=== PATIENT | male | born 1980 | race Caucasian/White ===

== ENCOUNTER 2020-05-03 18:34 | Emergency (ER) | payer OTHER, SELFPAY ==
--- NOTE | 2020-05-03 18:38 | ED_ITS ---
HPI - Overdose General Chief Complaint: Overdose <Ailyn Sims NP - Last Filed: 05/03/20 23:11> Stated Complaint: HEROIN OD,NARCAN GIVEN X'S 2, STILL IN & OUT <Ailyn Sims NP - Last Filed: 05/03/20 23:11> Time Seen by Provider: 05/03/20 18:36 <Ailyn Sims NP - Last Filed: 05/03/20 23:11> Source: EMS <Ailyn Sims NP - Last Filed: 05/03/20 23:11> Mode of arrival: EMS <Ailyn Sims NP - Last Filed: 05/03/20 23:11> Limitations: altered mental status <Ailyn Sims NP - Last Filed: 05/03/20 23:11> History of Present Illness HPI Narrative: 40-year-old male presents via EMS for overdose. Patient gave himself Narcan and was given 2 additional doses by EMS. He presents with bradycardia, cyanotic limbs and face. patient minimally responsive at this time. <Ailyn Sims NP - Last Filed: 05/03/20 23:11> MD complaint: accidental overdose <Ailyn Sims NP - Last Filed: 05/03/20 23:11> Onset (ago): minute(s) ( Just prior to arrival) <Ailyn Sims NP - Last Filed: 04/11 10/28 23:11> How Overdose Was Discovered: called 911 <Ailyn Sims NP - Last Filed: 05/03/20 23:11> Context: Intentional Overdose: relationship problems <Ailyn Sims NP - Last Filed: 05/03/20 23:11> Context: Accidental Overdose: wanted to get high <Ailyn Sims NP - Last Filed: 05/03/20 23:11> Treatments Prior to Arrival: narcan <Ailyn Sims NP - Last Filed: 05/03/20 23:11> Related Data Home Medications: Previous Rx's Medication Instructions Recorded clonazepam 1 mg tablet 1 mg PO TID PRN 30 Days #90 tab 05/02/20 metoprolol tartrate 100 mg tablet 100 mg PO BID 90 Days #180 tab 05/02/20 omeprazole 20 mg capsule,delayed 20 mg PO DAILY 90 Days #90 cap 05/02/20 release <Ailyn Sims NP - Last Filed: 05/03/20 23:11> Allergies/Adverse Reactions: Allergies Allergy/AdvReac Type Severity Reaction Status Date / Time cats Allergy Unknown hives Uncoded 05/03/20 18:41 <Aiyln Sims NP - Last Filed: 05/03/20 23:11> Review of Systems Review of Systems: Constitutional: No Fever, No Chills, positive heroin and fentanyl overdose ENT/Mouth: No sore throat, No Rhinorrhea Eyes: No Eye Pain, No Swelling, No Redness Cardiovascular: positive bradycardia, No Chest Pain, No SOB Respiratory: No Cough, No Sputum Gastrointestinal: No Nausea, No Vomiting, No Diarrhea, No abdominal Pain Genitourinary: No Dysuria, No Hematuria Musculoskeletal: No joint pain, No Myalgias, No Joint Swelling Skin: No Skin Lesions, No rash Neuro: No Weakness, No Numbness, No Loss of Consciousness, No Dizziness, No Headache Psych: No Anxiety, No Depression, No SI/HI/AH/VH Heme/Lymph: No Bruising, No Bleeding,No Lymphadenopathy Endocrine: No Polyuria, No Polydipsia <Aiyln Sims NP - Last Filed: 05/03/20 23:11> [facility] Past Medical History Attestation statement: The following information was validated with the patient. <Ailyn Sims NP - Last Filed: 05/03/20 23:11> Source: other ( obtained from EMS, and patient once he was awake) <Ailyn Sims NP - Last Filed: 05/03/20 23:11> Social History Social History: Social History Alcohol intake: current Alcohol intake frequency: a few times a week Smoking Status: Current every day smoker Use of substances other than those prescribed or required for medical reasons: Yes Substance Use Type: Heroin Substance Use Frequency: Daily Last Used Substance: Just Prior to Admission Advance Directives: No Advance Directives Information Provided: Yes <Ailyn Sims NP - Last Filed: 05/03/20 23:11> Physical Exam Vital Signs: Vital Signs: Vital Signs Temp Pulse Resp BP Pulse Ox 05/03/20 21:48 98.9 F 73 17 125/79 94 05/03/20 20:00 98.9 F 72 16 124/80 05/03/20 19:58 73 18 130/79 95 05/03/20 18:57 65 148/98 H 95 05/03/20 18:43 97.5 F 75 16 149/94 H 98 Body Mass Index 40.4 <Ailyn Sims NP - Last Filed: 05/03/20 23:11> Vital Signs: Vital Signs Temp Pulse Resp BP Pulse Ox 05/03/20 21:48 98.9 F 73 17 125/79 94 05/03/20 20:00 98.9 F 72 16 124/80 05/03/20 19:58 73 18 130/79 95 05/03/20 18:57 65 148/98 H 95 05/03/20 18:43 97.5 F 75 16 149/94 H 98 Body Mass Index 40.4 <Samuel Hernandez MD - Last Filed: 05/12/20 06:32> Appearance: Alert. Oriented X3. No acute distress. Eyes: Pupils equal, round and reactive to light. ENT: Pharynx normal. Neck: Normal inspection. Neck supple. CVS: Normal heart rate and rhythm. Pulses normal. Respiratory: No respiratory distress. Breath sounds normal. Abdomen: Soft and nontender. Skin: Skin warm and dry. Normal skin color. Normal skin turgor. Extremities: No lower extremity edema. Neuro: No motor deficit. No sensory deficit. <Ailyn Sims NP - Last Filed: 05/03/20 23:11> Course Course Course Narrative: patient's initial presentation was bradycardic with cyanotic limbs and face, once patient was moved into the trauma room, he was more alert oriented, heart rate in the 70s, pink skin with brisk capillary refill to all extremities, able to move over from EMS stretcher to ED trauma stretcher without any difficulty. At that time a complete review of systems was completed, states that this was an accidental overdose and he feels that maybe heroin was mixed with fentanyl. He has been using heroin for the past 2 weeks, prior to this he has been sober for 11 years. EKG is normal sinus With first-degree AV block, and T-wave abnormality, troponins are negative, tox screen positive for opiates and benzos -he is pr escribed benzos. Plan of care is to monitor for 2 hours and then discharge home if he remains in stable condition. Patient remains in stable condition time is 9:38 p.m., respirations even, unlabored, speaking clearly without difficulty, managing secretions, cranial nerves 2-12 intact, no focal neural deficits. Patient given Narcan for home use, and information for detox. Patient verbalized understanding of and agrees to plan of care discharge home. Consult with Dr. Siegel, he will follow- up in the office. <Ailyn Sims NP - Last Filed: 05/03/20 23:11> I have reviewed the chart <Samuel Hernandez MD - Last Filed: 05/12/20 06:32> Reevaluation(s) Reevaluation #1: Dr Siegel <Ailyn Sims NP - Last Filed: 05/03/20 23:11> Time: 23:02 <Ailyn Sims NP - Last Filed: 05/03/20 23:11> MDM - Overdose Differential Diagnosis Differential diagnosis: Likely poisoning by opiate or related narcotic, drug overdose and accidental drug ingestion <Ailyn Sims NP - Last Filed: 05/03/20 23:11> Medical Records Attestation: I reviewed the patient's medical records. <Ailyn Sims NP - Last Filed: 05/03/20 23:11> Lab Data Result diagrams: : 05/03/20 20:32 05/03/20 22:17 <Ailyn Sims NP - Last Filed: 05/03/20 23:11> Labs: Lab Results 05/03/20 05/03/20 05/03/20 Range/Units 20:32 20:32 20:32 WBC 12.9 H (4.8-10.8) X10*3/uL RBC 5.17 (4.60-5.80) X10*6/uL Hgb 16.7 (14.0-18.0) g/dl Hct 49.8 (42-52) % MCV 96.3 (80-98) fL MCH 32.3 (27.0-33.0) pg MCHC 33.5 (31.0-36.0) g/dl RDW 12.2 (11.0-16.0) % Plt Count 255 (160-400) X10*3/uL MPV 9.2 L (9.4-12.4) fL Immature Gran % (Auto) 0.2 (0.0-0.4) % Neut % (Auto) 74.1 H (45-73) % Lymph % (Auto) 16.2 L (20-40) % [place] % (Auto) 8.0 (2-11) % Eos % (Auto) 1.2 (0-4) % Baso % (Auto) 0.3 (0-2) % Lymph # (Auto) 2.1 (1.2-4.9) X10*3/uL [place] # (Auto) 1.0 (0.1-1.2) X10*3/uL Eos # (Auto) 0.2 (0.0-0.4) X10*3/uL Baso # (Auto) 0.0 (0.0-0.2) X10*3/uL Abs Immat Gran (auto) 0.03 (0.00-0.03) X10*3/uL Absolute Neuts (auto) 9.6 H (2.0-8.3) X10*3/uL Absolute Nucleated RBC 0.000 (0.0-0.012) X10*3/uL Nucleated RBC % (auto) 0.0 (0.0-0.2) /100WBC Sodium Cancelled Potassium Cancelled Chloride Cancelled Carbon Dioxide Cancelled Anion Gap Cancelled BUN Cancelled Creatinine Cancelled Estim Creat Clear Calc Cancelled Estimated GFR Cancelled Random Glucose Cancelled Calcium Cancelled Troponin I High Sens < 3.5 (<3.5-35.0) ng/L Urine Opiates Screen (Not Detect) Ur Barbiturates Screen (Not Detect) Ur Phencyclidine Scrn (Not Detect) Ur Amphetamines Screen (Not Detect) U Benzodiazepines Scrn (Not Detect) Urine Cocaine Screen (Not Detect) U Marijuana (THC) Screen (Not Detect) 05/03/20 05/03/20 05/03/20 Range/Units 20:32 22:17 22:17 WBC (4.8-10.8) X10*3/uL RBC (4.60-5.80) X10*6/uL Hgb (14.0-18.0) g/dl Hct (42-52) % MCV (80-98) fL MCH (27.0-33.0) pg MCHC (31.0-36.0) g/dl RDW (11.0-16.0) % Plt Count (160-400) X10*3/uL MPV (9.4-12.4) fL Immature Gran % (Auto) (0.0-0.4) % Neut % (Auto) (45-73) % Lymph % (Auto) (20-40) % [place] % (Auto) (2-11) % Eos % (Auto) (0-4) % Baso % (Auto) (0-2) % Lymph # (Auto) (1.2-4.9) X10*3/uL [place] # (Auto) (0.1-1.2) X10*3/uL Eos # (Auto) (0.0-0.4) X10*3/uL Baso # (Auto) (0.0-0.2) X10*3/uL Abs Immat Gran (auto) (0.00-0.03) X10*3/uL Absolute Neuts (auto) (2.0-8.3) X10*3/uL Absolute Nucleated RBC (0.0-0.012) X10*3/uL Nucleated RBC % (auto) (0.0-0.2) /100WBC Sodium 139 Potassium 4.0 Chloride 105 Carbon Dioxide 23 Anion Gap 15 BUN 11 Creatinine 0.85 Estim Creat Clear Calc 162.6 Estimated GFR > 60 Random Glucose 113 Calcium 9.1 Troponin I High Sens < 3.5 (<3.5-35.0) ng/L Urine Opiates Screen POSITIVE H (Not Detect) Ur Barbiturates Screen Not Detected (Not Detect) Ur Phencyclidine Scrn Not Detected (Not Detect) Ur Amphetamines Screen Not Detected (Not Detect) U Benzodiazepines Scrn POSITIVE H (Not Detect) Urine Cocaine Screen Not Detected (Not Detect) U Marijuana (THC) Screen Not Detected (Not Detect) <Ailyn Sims NP - Last Filed: 05/03/20 23:11> Lab Results 05/03/20 05/03/20 05/03/20 Range/Units 20:32 20:32 20:32 WBC 12.9 H (4.8-10.8) X10*3/uL RBC 5.17 (4.60-5.80) X10*6/uL Hgb 16.7 (14.0-18.0) g/dl Hct 49.8 (42-52) % MCV 96.3 (80-98) fL MCH 32.3 (27.0-33.0) pg MCHC 33.5 (31.0-36.0) g/dl RDW 12.2 (11.0-16.0) % Plt Count 255 (160-400) X10*3/uL MPV 9.2 L (9.4-12.4) fL Immature Gran % (Auto) 0.2 (0.0-0.4) % Neut % (Auto) 74.1 H (45-73) % Lymph % (Auto) 16.2 L (20-40) % [place] % (Auto) 8.0 (2-11) % Eos % (Auto) 1.2 (0-4) % Baso % (Auto) 0.3 (0-2) % Lymph # (Auto) 2.1 (1.2-4.9) X10*3/uL [place] # (Auto) 1.0 (0.1-1.2) X10*3/uL Eos # (Auto) 0.2 (0.0-0.4) X10*3/uL Baso # (Auto) 0.0 (0.0-0.2) X10*3/uL Abs Immat Gran (auto) 0.03 (0.00-0.03) X10*3/uL Absolute Neuts (auto) 9.6 H (2.0-8.3) X10*3/uL Absolute Nucleated RBC 0.000 (0.0-0.012) X10*3/uL Nucleated RBC % (auto) 0.0 (0.0-0.2) /100WBC Sodium Cancelled Potassium Cancelled Chloride Cancelled Carbon Dioxide Cancelled Anion Gap Cancelled BUN Cancelled Creatinine Cancelled Estim Creat Clear Calc Cancelled Estimated GFR Cancelled Random Glucose Cancelled Calcium Cancelled Troponin I High Sens < 3.5 (<3.5-35.0) ng/L Urine Opiates Screen (Not Detect) Ur Barbiturates Screen (Not Detect) Ur Phencyclidine Scrn (Not Detect) Ur Amphetamines Screen (Not Detect) U Benzodiazepines Scrn (Not Detect) Urine Cocaine Screen (Not Detect) U Marijuana (THC) Screen (Not Detect) 05/03/20 05/03/20 05/03/20 Range/Units 20:32 22:17 22:17 WBC (4.8-10.8) X10*3/uL RBC (4.60-5.80) X10*6/uL Hgb (14.0-18.0) g/dl Hct (42-52) % MCV (80-98) fL MCH (27.0-33.0) pg MCHC (31.0-36.0) g/dl RDW (11.0-16.0) % Plt Count (160-400) X10*3/uL MPV (9.4-12.4) fL Immature Gran % (Auto) (0.0-0.4) % Neut % (Auto) (45-73) % Lymph % (Auto) (20-40) % [place] % (Auto) (2-11) % Eos % (Auto) (0-4) % Baso % (Auto) (0-2) % Lymph # (Auto) (1.2-4.9) X10*3/uL [place] # (Auto) (0.1-1.2) X10*3/uL Eos # (Auto) (0.0-0.4) X10*3/uL Baso # (Auto) (0.0-0.2) X10*3/uL Abs Immat Gran (auto) (0.00-0.03) X10*3/uL Absolute Neuts (auto) (2.0-8.3) X10*3/uL Absolute Nucleated RBC (0.0-0.012) X10*3/uL Nucleated RBC % (auto) (0.0-0.2) /100WBC Sodium 139 Potassium 4.0 Chloride 105 Carbon Dioxide 23 Anion Gap 15 BUN 11 Creatinine 0.85 Estim Creat Clear Calc 162.6 Estimated GFR > 60 Random Glucose 113 Calcium 9.1 Troponin I High Sens < 3.5 (<3.5-35.0) ng/L Urine Opiates Screen POSITIVE H (Not Detect) Ur Barbiturates Screen Not Detected (Not Detect) Ur Phencyclidine Scrn Not Detected (Not Detect) Ur Amphetamines Screen Not Detected (Not Detect) U Benzodiazepines Scrn POSITIVE H (Not Detect) Urine Cocaine Screen Not Detected (Not Detect) U Marijuana (THC) Screen Not Detected (Not Detect) <Samuel Hernandez MD - Last Filed: 05/12/20 06:32> Imaging Data Chest x-ray: Attestation: I personally reviewed and interpreted this imaging study as follows: <Ailyn Sims NP - Last Filed: 05/03/20 23:11> Radiologist's impression: FINDINGS: Low lung volumes. No aspiration pneumonia. No radiopaque foreign body. ECG leads overlie the thorax. Stable scarring at the left base. No pulmonary edema. The patient is rotated to the right. Grossly normal and stable heart and mediastinum. Nonobstructive gas pattern. XR/XR chest 1V IMPRESSION: Low lung volumes. <Ailyn Sims NP - Last Filed: 05/03/20 23:11> ECG Data Attestation: I personally reviewed and interpreted this ECG as follows: <Ailyn Sims NP - Last Filed: 05/03/20 23:11> ECG interpretation date: 05/03/20 <Ailyn Sims NP - Last Filed: 05/03/20 23:11> ECG interpretation time: 18:41 <Ailyn Sims NP - Last Filed: 05/03/20 23:11> Prior ECG tracings: not available for review <Ailyn Sims NP - Last Filed: 05/03/20 23:11> Interpretation: Vent. rate 72 BPM FL interval 266 ms QRS duration 110 ms QT/QTc 412/451 ms P-R-T axes 58 40 -21 Sinus rhythm with 1st degree A-V block T wave abnormality, consider anterolateral ischemia Abnormal ECG No previous ECGs available 2nd EKG 05/03/2020 at time 9:45 p.m. Vent. rate 69 BPM FL interval 212 ms QRS duration 102 ms QT/QTc 384/411 ms P-R-T axes 43 36 -13 Sinus rhythm with 1st degree A-V block T wave abnormality, consider anterolateral ischemia Abnormal ECG When compared with ECG of 03-MAY-2020 18:41, No significant change was found <Ailyn Sims NP - Last Filed: 05/03/20 23:11> Discharge Plan Discharge Clinical Impression: Drug overdose <Ailyn Sims NP - Last Filed: 05/03/20 23:11> Patient Disposition: Home, Self-Care <Ailyn Sims NP - Last Filed: 05/03/20 23:11> Instructions: Opioid Safety (ED), Opioid Use Disorder (ED) <Ailyn Sims NP - Last Filed: 05/03/20 23:11> Additional Instructions: you were evaluated for accidental opioid overdose. Please consider detox. Please follow-up with Cardiology, Dr. Siegel. please call make an appointment. Thank you for choosing this emergency department for evaluation. Please follow-up with primary care physician as needed. Return to the emergency department for any new, concerning, or worsening symptoms. <Ailyn Sims NP - Last Filed: 05/03/20 23:11> Prescriptions: No Action clonazepam 1 mg tablet 1 mg PO TID PRN (Reason: anxiety) 30 Days Qty: 90 RF: 0 metoprolol tartrate 100 mg tablet 100 mg PO BID 90 Days Qty: 180 RF: 1 omeprazole 20 mg capsule,delayed release(DR/EC) 20 mg PO DAILY 90 Days Qty: 90 RF: 1 <Ailyn Sims NP - Last Filed: 05/03/20 23:11> Referrals: Florentin Siegel MD [Physician] - 2 days ( Call for an appointment) <Ailyn Sims NP - Last Filed: 05/03/20 23:11> Interventions: ED Discharge Assessment Last Done: 05/03/20 23:18 <JYOTHI Bosch Last Filed: 05/03/20 23:11> Discharge Date/Time: 05/03/20 23:47 <Ailyn Sims NP - Last Filed: 05/03/20 23:11>
[2020-05-03 18:43] VITALS: BP 149/94; PULSE 40; PULSE 75; RESP 16; TEMP 36.4; O2SAT 98; BMI 40.4
--- NOTE | 2020-05-03 18:50 | PC.NURSE ---
Upon pt arrival pt noted to be cyanotic to hands feet, unresponsive. Julio on EMS stretcher in 40s however per EMS HR as low as 20. Pt color has improved and HR 70s with occasional trends down to 50s.
--- NOTE | 2020-05-03 18:51 | PC.NURSE ---
AT THIS RN ARRIVAL PT IS ALERT, YAWING FREQUENTLY. GOOD BUMPS THROUGHOUT BODY. STATING I'M GOING TO PASS OUT DROPS A QRS AT TIMES BUT HR REMAINS APROX 60'S 70'S.
--- NOTE | 2020-05-03 18:55 | XR_ITS ---
EXAMINATION: XR CHEST CLINICAL INFORMATION: Overdose COMPARISON: 04/01/2014 TECHNIQUE: Frontal view of the chest was obtained. FINDINGS: Low lung volumes. No aspiration pneumonia. No radiopaque foreign body. ECG leads overlie the thorax. Stable scarring at the left base. No pulmonary edema. The patient is rotated to the right. Grossly normal and stable heart and mediastinum. Nonobstructive gas pattern. XR/XR chest 1V IMPRESSION: Low lung volumes.
[2020-05-03 18:57] VITALS: BP 148/98; PULSE 65; O2SAT 95
--- NOTE | 2020-05-03 19:07 | PC.NURSE ---
pt does note need nor have a sitter though form documentation differs.
--- NOTE | 2020-05-03 19:20 | PC.NURSE ---
MOTHER, MARJ AND [facility] UPDATES. [phone]
--- NOTE | 2020-05-03 19:57 | PC.NURSE ---
ALERT. REMORSEFULL. STATING I DON'T WANT TO DO THIS NSR ON MONITOR. NO LONGER IN [facility]. ASKING ABOUT RECOVERY PROGRAMS.
[2020-05-03 19:58] VITALS: BP 130/79; PULSE 73; RESP 18; O2SAT 95
[2020-05-03 20:00] VITALS: BP 124/80; PULSE 72; RESP 16; TEMP 37.2
--- NOTE | 2020-05-03 20:16 | PC.NURSE ---
VERY DIFFICULT STICK
[2020-05-03 20:37] LABS: MANUAL DIFF FLAG NO
[2020-05-03 20:40] LABS: Basophils Percent Auto 0.3 % (0-2); Eosinophils Absolute Auto 0.2 X10*3/uL (0.0-0.4); Eosinophils Percent Auto 1.2 % (0-4); Hematocrit 49.8 % (42-52); Hemoglobin 16.7 g/dl (14.0-18.0); Imm Gran Abs Auto 0.03 X10*3/uL (0.00-0.03); Imm Gran Pct Auto 0.2 % (0.0-0.4); Lymphocytes Absolute Auto 2.1 X10*3/uL (1.2-4.9); Lymphocytes Percent Auto 16.2 % (20-40); Mean Corpuscular HGB Conc 33.5 g/dl (31.0-36.0); Mean Corpuscular Hemoglobin 32.3 pg (27.0-33.0); Mean Corpuscular Volume 96.3 fL (80-98); Mean Platelet Volume 9.2 fL (9.4-12.4); Neutrophils Absolute Auto 9.6 X10*3/uL (2.0-8.3); Neutrophils Percent Auto 74.1 % (45-73); Platelet Count 255 X10*3/uL (160-400); Red Blood Count 5.17 X10*6/uL (4.60-5.80); Red Cell Distribution Width 12.2 % (11.0-16.0); White Blood Count 12.9 X10*3/uL (4.8-10.8)
[2020-05-03 21:01] LABS: Amphetamine Screen Urine Not Detected (Not Detect); Barbiturates, Urine Not Detected (Not Detect); Benzodiazepines Screen Urine POSITIVE (Not Detect); Cannabinoid Screen Urine Not Detected (Not Detect); Cocaine Screen Urine Not Detected (Not Detect); Opiate Screen Urine POSITIVE (Not Detect); Phencyclidine Screen Urine Not Detected (Not Detect)
[2020-05-03 21:05] LABS: Troponin-I High Sensitivity < 3.5 ng/L (<3.5-35.0)
--- NOTE | 2020-05-03 21:40 | ECG_ITS ---
Test Reason : OVERDOSE Blood Pressure : / mmHG Vent. Rate : 072 BPM Atrial Rate : 072 BPM P-R Int : 266 ms QRS Dur : 110 ms QT Int : 412 ms P-R-T Axes : 058 040 -21 degrees QTc Int : 451 ms Sinus rhythm with 1st degree A-V block T wave abnormality, consider anterolateral ischemia Abnormal ECG No previous ECGs available Referred By: Ailyn Sims Electronically Signed By:DILIA CRUZ MD
[2020-05-03 21:48] VITALS: BP 125/79; PULSE 73; RESP 17; TEMP 37.2; O2SAT 94
[2020-05-03] MEDS: Naloxone HCl Nasal TAKE HOME 4 MG SPRAY NOSTRILALT (22:32)
[2020-05-03 22:48] LABS: Anion Gap 15 (12-20); Blood Urea Nitrogen 11 mg/dL (9-16); Calcium 9.1 mg/dL (8.4-10.2); Carbon Dioxide 23 mmol/L (22-29); Chloride 105 mmol/L (96-108); Creatinine Clr Calc Pharmacy 162.6; Estimated Glomerular Filt Rate > 60; Glucose Random 113 mg/dL (60-115); Sodium 139 mmol/L (135-145)
[2020-05-03 22:56] LABS: Troponin-I High Sensitivity < 3.5 ng/L (<3.5-35.0)
--- NOTE | 2020-05-05 09:51 | ECG_ITS ---
Test Reason : REPEAT Blood Pressure : / mmHG Vent. Rate : 069 BPM Atrial Rate : 069 BPM P-R Int : 212 ms QRS Dur : 102 ms QT Int : 384 ms P-R-T Axes : 043 036 -13 degrees QTc Int : 411 ms Sinus rhythm with 1st degree A-V block T wave abnormality, consider anterolateral ischemia Abnormal ECG When compared with ECG of 03-MAY-2020 18:41, No significant change was found Referred By: Ailyn Sims Electronically Signed By:DILIA CRUZ MD
== END 2020-05-03 23:47 | disposition home or self-care (01) ==
PROVIDERS: Nurse Practitioner Family; Emergency Provider Emergency Medicine; PCP Internal Medicine
DX: T40.1X1A Poisoning by heroin, accidental (unintentional), initial encounter (principal); Y92.9 Unspecified place or not applicable; Z79.899 Other long term (current) drug therapy; F17.200 Nicotine dependence, unspecified, uncomplicated; Z71.6 Tobacco abuse counseling; Z71.51 Drug abuse counseling and surveillance of drug abuser
CPT/HCPCS: 36415; 71045; 80048; 80307; 84484; 85025; 93005; 99285

== ENCOUNTER → 2020-07-14 08:05 | Outpatient (BNVA) | payer OTHER, SELFPAY | PROVIDERS: PCP Internal Medicine; Visit Provider Internal Medicine | DX: R94.31 Abnormal electrocardiogram [ECG] [EKG] (principal); R07.2 Precordial pain; I25.10 Atherosclerotic heart disease of native coronary artery without angina pectoris | CPT/HCPCS: 99202 ==

== ENCOUNTER → 2020-09-08 08:26 | Outpatient (REF) | payer OTHER, SELFPAY ==
--- NOTE | ~2020-09-08 | NM_ITS ---
Myocardial perfusion study Indication: Chest pain to evaluate for myocardial ischemia Technique: The patient was brought in for a Lexiscan perfusion study on 09/08/2020. Patient performed low-level exercise and was injected 0.4 mg of Lexiscan intravenously. Within a minute of injection, 45 mCi of sestamibi was given intravenously. Images were obtained using the SPECT gamma camera interlaced with the gating device. Images were obtained in supine position. Resting perfusion study was performed on 09/11/2020. Patient was administered 45 mCi of sestamibi intravenously at rest. Images were then obtained in supine position. Images obtained with and without CT attenuation. Total DLP 136 mGy-cm. Images were processed with the software and compared side to side in short axis, horizontal long axis and vertical long axis views. Findings: The stress perfusion study showed non attenuated images show mildly reduced uptake in the apex and moderately reduced uptake in the basal inferior wall of the LV myocardium. There is thinning of the mid and apical portion of the inferior wall. Other segments are normal uptake. Attenuation corrected images show minimal reduction of uptake in the basal septal wall of the LV myocardium... The gated study shows normal LV systolic function with calculated LVEF of 55%. LV cavity is mildly dilated size. The gated study shows normal wall thickening and contraction of segments. Resting study was somewhat suboptimal due to subdiaphragmatic uptake shows non attenuated images globally mildly reduced uptake with moderately reduced uptake in the apex.. Gating at rest reveals normal systolic wall motion with ejection fraction at 49% which could be an underestimation. The findings are consistent with no clear reversible defect with suboptimal resting perfusion study. Likely normal myocardial perfusion. NM/NM luis antonio perf SPECT rest & str Impression: 1. Myocardial perfusion imaging study shows likely normal myocardial perfusion 2. Gated LVEF is 55% 3. Transient ischemic dilatation not present but LV cavity appears to be dilated EKG is nondiagnostic for ischemia
--- NOTE | 2020-09-08 08:29 | CA_ITS ---
Transthoracic Echocardiogram Patient (Last, First, Middle): Shan Green W Gender: Male Date of : 1980 Age: 40 Procedure Date: 09/08/2020 Procedure Type: Transthoracic Echocardiogram Location: OP Height: 182.88 cm Weight: 136.08 kg BSA: 2.53 m2 Heart Rate: bpm BP: 136 / 80 mmHg Lever Miller: Referring MD: Florentin Siegel MD Symptoms: I25.10 - Atherosclerotic heart disease of [place] coronary artery without angina pectoris Study Quality: Technically Difficult ECG Rhythm: Sinus Conclusions: - The left ventricular systolic function is normal. The visually estimated ejection fraction is between 55-60%. - No obvious valvular pathology seen on this study. Findings Procedure Information Contrast agent, definity, is being given per protocol without apparent complications. Left Ventricle Normal left ventricular cavity size. There is mildly increased left ventricular wall thickness. The left ventricular systolic function is normal. The visually estimated ejection fraction is between 55-60%. Regional wall motion abnormalities can not be excluded due to suboptimal endocardial definition. Diastolic function is normal for age. Right Ventricle Normal right ventricular cavity size and systolic function. Atria The left atrium is normal in size. The right atrium is normal in size. Aortic Valve There is a normal trileaflet aortic valve. There is no aortic valve stenosis. There is no aortic valve regurgitation. Mitral Valve The mitral valve appears normal. There is trace mitral valve regurgitation. There is no mitral valve stenosis. Pulmonic Valve The pulmonic valve was not well visualized. Tricuspid Valve Normal tricuspid valve structure. There is no tricuspid valve regurgitation. The pulmonary artery systolic pressure is normal. Great Vessels The aortic annulus, sinuses of valsalva, and asc aorta are normal in size. Venous The inferior vena cava is normal in size and collapses greater than 50% with inspiration. Pericardium/Pleural There is no evidence of pericardial effusion. Prior Study Comparison No prior study available for comparison. Recommendations, Care & Conclusions No obvious valvular pathology seen on this study. Measurements 2D Linear Measurements IVSd: 1.29 0.6-0.9/0.6-1.0 cm LVIDd: 5.52 3.9-5.3/4.2-5.9 cm LVIDd Index: 2.18 2.4-3.2/2.2-3.1 cm/m2 LVIDs: 3.15 2.0-3.6 cm LVPWd: 1.23 0.7-1.1 cm Ao Root: 3.80 2.1-3.5 cm LA Diam: 3.70 2.7-3.8/3.0-4.0 cm LAIDs Index: 1.46 1.5-2.3 cm/m2 LV Mass: 365.58 67-162/88-224 g LV Mass Index: 144.50 43-95/49-115 g/m2 LVOT Diam: 2.70 3.0+(-)1.3 cm Mitral Valve MV Pk E: 0.68 MV PK A: 0.64 MV Decel Time: 148.00 E/A: 1.10 E'Lateral: 8.70 E'Medial: 8.99 E/E' Med: 7.60 E/E' Lat: 7.90 PHT: 43.00 MVA PHT: 5.12 Decel [place]: 4.62 Aortic Valve AoV Pk Ivan: 1.34 AoV Mn Ivan: 0.98 AoV VTI: 0.28 AoV Pk Grad: 7.00 Aov Mn Grad: 4.00 ROBERTO Cont.VTI: 4.27 LVOT LVOT Pk Ivan: 1.10 LVOT Mn Ivan: 0.75 LVOT VTI: 0.21 LVOT Pk Grad: 5.00 LVOT Mn Grad: 3.00 LVOT Diam: 2.70 LVOT Area: 5.73 Diastolic Function MV Pk E: 0.68 MV Pk A: 0.64 E/A: 1.10 E'Medial: 8.99 E/E' Med: 7.60 E' Laterial: 8.70 E/E' Lat: 7.90 Tricuspid Valve TR Pk Ivan: 1.58 TR Pk Grad: 10.00 RA Press: 3.00 RVSP: 13.00 Great Vessels Aorta Ao Root-2D: 3.80 2.0-3.7 cm Ao Asc: 3.60 2.1-3.4 cm Pulmonary Valve PV Pk Ivan: 1.30 Peak PV Grad: 7.00 Updated in Other Vendor System with Status of Final Florentin Siegel MD electronically signed on 09/08/2020 11:00:04 AM with status of Final
--- NOTE | 2020-09-08 08:29 | CA_ITS ---
Acquisition Time: 2020-09-08 09:48:06 Total Exercise Time: 00:02:00 Test Indications: Chest Pain Medications: ASA ATORVASTATIN CLONAZAPAM METHADONE METOPROLOL OMEPRAZOLE Protocol: LEXISCAN Max HR: 126 BPM 70% of Pred: 179 BPM Max BP: 134/080 mmHG Max Work Load: 1.0 METS Pharmacological stress test using Lexiscan while sitting and kicking his feet. Pt tolerated well. Denies any anginal sx. EKG without arrhythmias. ST depressions seen anteriorly and inferiorly before Lexiscan, with no change after the injection. Non-diagnostic for ischemia. Nuclear images to follow. Normotensive response to test. Test reviewed with Dr. Oscar. Referred By: Florentin Siegel Overread By:
== END ==
LOC: HO.CARD 08:26
PROVIDERS: Visit Provider Internal Medicine
DX: R07.2 Precordial pain (principal); I20.9 Angina pectoris, unspecified
CPT/HCPCS: 78452; 93017; 93306; A9500; J0280; J2785; Q9957

== ENCOUNTER → 2020-09-26 10:54 | Outpatient (BNVA) | payer OTHER, SELFPAY | PROVIDERS: PCP Internal Medicine; Visit Provider Nurse Practitioner Family | DX: I25.10 Atherosclerotic heart disease of native coronary artery without angina pectoris (principal); R94.31 Abnormal electrocardiogram [ECG] [EKG]; E78.00 Pure hypercholesterolemia, unspecified; Z79.899 Other long term (current) drug therapy; Z79.82 Long term (current) use of aspirin; Z87.891 Personal history of nicotine dependence | CPT/HCPCS: 99212 ==

== ENCOUNTER 2020-10-27 10:39 | Outpatient (REF) | payer OTHER, SELFPAY ==
[2020-10-27 17:12] LABS: CT PCR NOT DETECTED (Not Detect.); NG PCR NOT DETECTED (Not Detect.)
== END 2020-10-27 10:40 | disposition home or self-care (01) ==
LOC: HO.LAB 10:39
PROVIDERS: Visit Provider Nurse Practitioner Family
DX: R30.0 Dysuria (principal); R31.9 Hematuria, unspecified; Z76.89 Persons encountering health services in other specified circumstances
CPT/HCPCS: 87086; 87491; 87591

== ENCOUNTER 2021-07-30 08:03 | Outpatient (REF) | payer OTHER, SELFPAY ==
[2021-07-30 11:18] LABS: MANUAL DIFF FLAG NO
[2021-07-30 11:37] LABS: Basophils Percent Auto 0.3 % (0-2); Eosinophils Absolute Auto 0.3 X10*3/uL (0.0-0.4); Eosinophils Percent Auto 5.3 % (0-4); Hematocrit 40.4 % (42.0-52.0); Hemoglobin 13.7 g/dl (14.0-18.0); Imm Gran Abs Auto 0.01 X10*3/uL (0.00-0.03); Imm Gran Pct Auto 0.2 % (0.0-0.4); Lymphocytes Percent Auto 51.9 % (20-40); Mean Corpuscular HGB Conc 33.9 g/dl (31.0-36.0); Mean Corpuscular Hemoglobin 32.5 pg (27.0-33.0); Monocytes Absolute Auto 0.4 X10*3/uL (0.1-1.2); Monocytes Percent Auto 7.4 % (2-11); Neutrophils Percent Auto 34.9 % (45-73); Platelet Count 256 X10*3/uL (160-400); Red Blood Count 4.21 X10*6/uL (4.60-5.80); Red Cell Distribution Width 12.8 % (11.0-16.0); White Blood Count 5.8 X10*3/uL (4.8-10.8)
[2021-07-30 12:04] LABS: Alanine Aminotransferase 35 U/L (0-40); Albumin Level 4.1 g/dL (3.5-5.0); Alkaline Phosphatase 67 U/L (39-117); Anion Gap 14 (12-20); Aspartate Amino Transferase 30 U/L (5-37); Bilirubin Total 0.5 mg/dL (0.0-1.0); Blood Urea Nitrogen 12 mg/dL (9-16); Calcium 9.4 mg/dL (8.4-10.2); Carbon Dioxide 28 mmol/L (22-29); Chloride 103 mmol/L (96-108); Estimated Glomerular Filt Rate > 60; Glucose Random 118 mg/dL (60-115); Potassium 4.2 mmol/L (3.3-5.1); Sodium 141 mmol/L (135-145); Total Protein 7.6 g/dL (6.5-8.0)
[2021-07-30 12:09] LABS: TSH reflex Free T4 3.42 uIU/mL (0.32-4.0)
[2021-07-30 12:16] LABS: Erythrocyte Sedimentation Rate 8 MM/HR (0-15)
== END 2021-07-30 08:04 | disposition home or self-care (01) ==
LOC: HO.HMGCLDS 08:03
PROVIDERS: PCP Internal Medicine; Visit Provider Internal Medicine
DX: Z00.00 Encounter for general adult medical examination without abnormal findings (principal); Z20.822 Contact with and (suspected) exposure to COVID-19; R51.9 Headache, unspecified; R53.83 Other fatigue
CPT/HCPCS: 36415; 80053; 84443; 85025; 85652; U0005

== ENCOUNTER 2023-03-23 09:02 | Outpatient (AMB) | payer OTHER, SELFPAY ==
[2023-03-23 09:06] VITALS: BP 140/100; BMI 43.3
--- NOTE | 2023-03-23 09:06 | MHC.PC.OV ---
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 Accompanied by: Self / Same As Patient Allergies cat dander Allergy (Unknown, Verified 03/23/23 09:57) Hives Medication List - Last Reconciled 03/23/23 by Humble Bullock MD aspirin 81 mg PO DAILY clonazepam 1 mg PO TID PRN 30 days methadone 48 mg PO DAILY metoprolol tartrate 100 mg PO BID 90 days omeprazole 20 mg PO DAILY 90 days Tobacco use date assessed: 09/09/22 Dental Screening Dental Screen Date: 03/23/23 Did you have a dental visit in the last 12 months?: Yes Did you have a dental problem in the last 6 months where you did not have access to dental care?: No Was dental information given to patient?: Patient has dentist HPI PE HPI Details Patient comes in today for his annual physical examination States that he feels okay Forgot to take his BP med last night and this morning and states that this is mostly the reason why his blood pressure is up right now He denies any headaches or dizziness Denies any chest pains, no SOB No nausea/vomiting, no abdominal pain No change in bowel habits noted - has constipation on and off due to his being on Methadone Denies any acute urinary symptoms Was not able to get his follow up labs done yet - states that he can try to get them done as soon as he leaves the office today [facility] Medical History (Updated 03/23/23 @ 10:10 by Humble Bullock MD) Benign essential hypertension Morbid obesity with BMI of 40.0-44.9, adult Atherosclerotic cardiovascular disease Smoker History of substance abuse Coronary artery disease Pure hypercholesterolemia GERD (gastroesophageal reflux disease) Anxiety Surgical History History of tonsillectomy and adenoidectomy Family History Father Lung cancer Hypertension Smoker Mother Diabetes Hypothyroidism Social History Housing: Apartment Alcohol intake: former Patient Tobacco Use Status: Former Tobacco user e-Cigarette/Vaping Use: Never Used Second Hand Smoke Exposure: Yes Substance Use Type: Heroin service: No Current occupational status: employed Current occupational exposures/hazards: No Cognitive needs: No Hearing needs: No Vision needs: No Questionnaire PHQ-9 Over the last 2 weeks, how often have you been bothered by any of the following problems? 1. Little interest or pleasure in doing things: several days 2. Feeling down, depressed, or hopeless: several days 3. Trouble falling or staying asleep, or sleeping too much: several days 4. Feeling tired or having little energy: several days 5. Poor appetite or overeating: several days 6. Feeling bad about yourself - or that you are a failure or have let yourself or your family down: several days 7. Trouble concentrating on things, such as reading the newspaper or watching television: several days 8. Moving or speaking so slowly that other people could have noticed. Or the opposite - being so fidgety or restless that you have been moving around a lot more than usual: not at all 9. Thoughts that you would be better off or of hurting yourself in some way: not at all Total score: 7 Depression Screening Interpretation: Positive Depression Screening Follow-up: Existing condition and In treatment 71543 - PHQ-9 Billing: Yes Source: Developed by Drs. Froylan Vernon, Alesha Mcclellan, Jose Dickerson and colleagues, with an educational radha from [employer]. Thrive Questionnaire Date Thrive assessed: 03/23/23 I am a: Patient What is your living situation today?: I have a steady place to live Within the past 12 months, did the food you bought not last and you didn't have the money to get more?: Never true Within the past 12 months, did you worry whether your food would run out before you got money to buy more?: Never true Currently or been in a relationship where the following occur: no concerns reported AUDIT C Alcohol Use Questionnaire (AUDIT-C) 1. How often do you have a drink containing alcohol?: Never 3. How often do you have six or more drinks on one occasion?: Never Total Score: 0 Score Reviewed/Action Taken: Yes BEN-7 AMB Questionnaire BEN-7 Date BEN - 7 assessed: 09/09/22 Source: Developed by Drs. Froylan Vernon, Alesha Mcclellan, Jose iDckerson and colleagues, with an educational radha from [employer]. Review of Systems Const Denies chills, Reports fatigue, Denies fever(s) and Denies headache(s) Eyes Denies blurry vision, Denies change in vision, Denies irritation and Denies itchy eyes ENT Denies dysphagia, Denies dizziness, Denies otalgia, Denies headache(s), Denies neck pain, Denies odynophagia and Denies sore throat Card Denies chest pain, Denies palpitations and Denies dyspnea Resp Denies cough, Denies dyspnea and Denies wheezing GI Denies abdominal pain, Reports constipation (on and off), Denies dysphagia, Denies heartburn, Denies diarrhea, Denies nausea, Denies odynophagia and Denies vomiting Denies dysuria, Denies nocturia and Denies urinary frequency Musc Denies back pain, Denies arthralgias, Denies joint swelling, Denies muscle weakness and Denies neck pain Skin/Breast Denies rash Neuro Denies dizziness and Denies headache(s) Psych Reports anxiety Endo Reports fatigue and Denies palpitations Aller/Immun Denies itchy eyes and Denies wheezing Physical exam (Primary Care) Vital Signs: Last Vital Signs BP 140/100 H 03/23/23 09:06 BMI result Body Mass Index 43.3 Tobacco/Smoking Status: Tobacco use Status Tobacco use date assessed 09/09/22 03/23/23 09:10 Patient Tobacco Use Status Former Tobacco user 03/23/23 09:10 e-Cigarette/Vaping Use Never Used 03/23/23 09:10 Depression Screening Interpretation: Positive Depression Screening Follow-up: Existing condition and In treatment Thrive Assessment: Date of Thrive Assessment Date Thrive assessed 09/09/22 03/23/23 09:10 Currently or been in a relationship where the following occur: no concerns reported Const General: no acute distress, alert and awake Orientation/consciousness: patient oriented x3 HENMT Head: Yes normocephalic and Yes atraumatic Ears: external ears normal, TM's normal bilaterally and EAC's normal General nose exam: No nasal discharge present Face and sinus: Yes normal facial exam and Yes sinuses nontender Teeth and gingiva: dentition normal Throat: Yes posterior oropharynx normal and Yes tonsils normal (no TP congestion) Eyes Eyelids: Yes eyelids normal Conjunctivae: conjunctivae normal Pupils: Equal, round and reactive pupils present EOM: EOMs intact bilaterally Neck Neck: Yes no lymphadenopathy and Yes supple Thyroid: Thyroid normal Resp Auscultation: clear to auscultation bilaterally, no rales and no wheezes Cardio Rate: regular rate Rhythm: regular rhythm Heart sounds: no murmurs GI Palpation (GI): Soft to palpation, nontender and No hepatosplenomegaly present Auscultation: normal bowel sounds General: Yes no CVA tenderness Back/Spine/Pelvis Back: no CVA tenderness Thoracic/Lumbar Spine: thoracic and lumbar spine normal to inspection Skin Lesions: no lesions Rashes: no rashes Neuro General: patient oriented x3, moves all extremities, no focal motor deficits and CN's II-XI intact bilaterally Cranial nerves: Yes Equal, round and reactive pupils present Cognition (Neuro): normal cognition Gait exam (Neuro): Normal gait present Extrem General: Yes no clubbing, cyanosis or edema Assessment and Plan Assessment & Plan (1) Annual physical exam: Code(s): Z00.00 - Encounter for general adult medical examination without abnormal findings Plan: Check labs - previous lab orders updated and patient states that he will go and get them done now as soon as he leaves the office He is not yet due but advised that he will need to start screening colonoscopy next year when he turns 44 y/o (2) Coronary artery disease: Code(s): I25.10 - Atherosclerotic heart disease of [place] coronary artery without angina pectoris Qualifiers: Coronary Disease-Associated Artery/Lesion type: [place] artery [place] vs. transplanted heart: [place] heart Associated angina: without angina Qualified Code(s): I25.10 - Atherosclerotic heart disease of [place] coronary artery without angina pectoris Plan: Continue Metoprolol 100 mg BID and Aspirin 81 mg QD Most recent EKG done at [facility] in January 2022 revealed NSR with (+) T wave inversions in the anterolateral leads - these are similar to his previous EKG findings as far back as in 2013 Myocardial perfusion scan and echocardiogram done a couple of years ago came back normal Follow up with cardiology as scheduled (3) Benign essential hypertension: Code(s): I10 - Essential (primary) hypertension Plan: Reinforced low sodium diet - goal is systolic BP of 120 mm or less States that he forgot to take his Metoprolol last night and this morning; is advised to take his AM dose today as soon as he gets home Continue Metoprolol tartrate 100 mg BID for now Patient is instructed to continue monitoring his BP closely (4) Pure hypercholesterolemia: Code(s): E78.00 - Pure hypercholesterolemia, unspecified Plan: Reinforced low cholesterol diet Patient used to take Atorvastatin but has not been on the Rx for about a year now Advised that it has been at least 2 to 3 years now since he's had his cholesterol levels checked, advised that he should go and get these done [facility] - lab orders updated Advised that we will call him with further recommendations depending on how his labs come out (5) GERD (gastroesophageal reflux disease): Code(s): K21.9 - Gastro-esophageal reflux disease without esophagitis Qualifiers: Esophagitis presence: without esophagitis Qualified Code(s): K21.9 - Gastro-esophageal reflux disease without esophagitis Plan: Dietary restrictions reinforced Continue Omeprazole 20 mg QD (6) Constipation: Code(s): K59.00 - Constipation, unspecified Qualifiers: Constipation type: unspecified constipation type Qualified Code(s): K59.00 - Constipation, unspecified Plan: On and off - is most likely due to his being on Methadone Encouraged increased oral fluids and dietary fiber Advised that he can try taking some OTC stool softeners PRN and he can call for Rx if these do not help him (7) History of substance abuse: Comment: heroin, cocaine, opioids Code(s): F19.11 - Other psychoactive substance abuse, in remission Plan: Continue Methadone 48 mg QD - dose was dropped slightly from 55 mg previously Follow up with the [facility] ([facility]) as scheduled (8) Anxiety: Code(s): F41.9 - Anxiety disorder, unspecified Plan: Continue Clonazepam 1 mg TID PRN Patient is advised again to consider referral to psychiatry for further evaluation and management for his anxiety but he would like to continue holding off for now as he feels okay on his current Rx and is hoping that being able to get back to exercising regularly and losing some weight will help him a lot (9) Smoker: Code(s): F17.200 - Nicotine dependence, unspecified, uncomplicated Plan: Counseled again on smoking cessation (10) Morbid obesity with BMI of 40.0-44.9, adult: Code(s): E66.01 - Morbid (severe) obesity due to excess calories; Z68.41 - Body mass index [BMI] 40.0-44.9, adult Plan: Reinforced diet/exercise as tolerated/lose weight Plan Follow up in 4 months Orders: Orders Comprehensive [place]. Panel Fast 4 Months E78.00 - Pure hypercholesterolemia, unspecified Lipid Panel 4 Months E78.00 - Pure hypercholesterolemia, unspecified Complete Blood Count Auto Diff 4 Months I10 - Essential (primary) hypertension Coding Level of Care Code Est Pt Prev Care 40-64y(26634) Diagnoses Annual physical exam Z00.00 Coronary artery disease involving [place] coronary artery of [place] heart without angina pectoris I25.10 Coronary Disease-Associated Artery/Lesion type: [place] artery [place] vs. transplanted heart: [place] heart Associated angina: without angina Benign essential hypertension I10 Pure hypercholesterolemia E78.00 Gastroesophageal reflux disease without esophagitis K21.9 Esophagitis presence: without esophagitis Constipation, unspecified constipation type K59.00 Constipation type: unspecified constipation type History of substance abuse F19.11 Anxiety F41.9 Smoker F17.200 Morbid obesity with BMI of 40.0-44.9, adult E66.01; Z68.41
== END 2023-03-23 10:03 | disposition home or self-care (01) ==
PROVIDERS: PCP Internal Medicine; Visit Provider Internal Medicine
DX: Z00.00 Encounter for general adult medical examination without abnormal findings (principal); I10 Essential (primary) hypertension; K21.9 Gastro-esophageal reflux disease without esophagitis; F17.210 Nicotine dependence, cigarettes, uncomplicated; F41.9 Anxiety disorder, unspecified; F19.11 Other psychoactive substance abuse, in remission; I25.10 Atherosclerotic heart disease of native coronary artery without angina pectoris; Z68.41 Body mass index [BMI] 40.0-44.9, adult; E66.01 Morbid (severe) obesity due to excess calories; E78.00 Pure hypercholesterolemia, unspecified; K59.00 Constipation, unspecified
CPT/HCPCS: 99396

== ENCOUNTER 2023-03-23 10:09 | Outpatient (REF) | payer OTHER, SELFPAY ==
[2023-03-23 10:21] LABS: MANUAL DIFF FLAG NO
[2023-03-23 10:40] LABS: Basophils Percent Auto 0.4 % (0-2); Eosinophils Absolute Auto 0.2 X10*3/uL (0.0-0.4); Eosinophils Percent Auto 3.9 % (0-4); Hematocrit 42.5 % (42.0-52.0); Hemoglobin 14.4 g/dl (14.0-18.0); Imm Gran Abs Auto 0.01 X10*3/uL (0.00-0.03); Imm Gran Pct Auto 0.2 % (0.0-0.4); Lymphocytes Absolute Auto 1.8 X10*3/uL (1.2-4.9); Lymphocytes Percent Auto 35.3 % (20-40); Mean Corpuscular HGB Conc 33.9 g/dl (31.0-36.0); Mean Corpuscular Hemoglobin 33.4 pg (27.0-33.0); Mean Corpuscular Volume 98.6 fL (80.0-98.0); Mean Platelet Volume 9.4 fL (9.4-12.4); Monocytes Absolute Auto 0.4 X10*3/uL (0.1-1.2); Monocytes Percent Auto 8.4 % (2-11); Neutrophils Absolute Auto 2.7 x10*3/uL (2.0-8.3); Neutrophils Percent Auto 51.8 % (45-73); Platelet Count 190 X10*3/uL (160-400); Red Blood Count 4.31 X10*6/uL (4.60-5.80); Red Cell Distribution Width 12.7 % (11.0-16.0); White Blood Count 5.1 X10*3/uL (4.8-10.8)
[2023-03-23 11:01] LABS: Estimated Average Glucose 103 mg/dL; Hemoglobin A1c % 5.2 % (<6.0)
[2023-03-23 11:11] LABS: Appearance Urine Clear; Color Urine Yellow; Glucose Urine UA Negative (Negative); Leukocyte Esterase Urine Negative (Negative); Nitrite Urine Negative (Negative); Specific Gravity - Urine 1.025 (1.005-1.025); Urine Blood Negative (Negative); Urine Ketones Trace mg/dL (Negative); Urine Protein Negative (Neg-Trace)
[2023-03-23 11:15] LABS: Alanine Aminotransferase 61 U/L (0-40); Albumin Level 4.2 g/dL (3.5-5.0); Alkaline Phosphatase 65 U/L (39-117); Anion Gap 9 (12-20); Aspartate Amino Transferase 40 U/L (5-37); Bilirubin Total 0.5 mg/dL (0.0-1.0); Blood Urea Nitrogen 14 mg/dL (9-16); Calcium 9.2 mg/dL (8.4-10.2); Carbon Dioxide 29 mmol/L (22-29); Chloride 107 mmol/L (96-108); Cholesterol 217 mg/dL (<200); Estimated Glomerular Filt Rate > 60; Glucose Fasting 113 mg/dL (60-99); HDL Cholesterol 45 mg/dL (>40); LDL Cholesterol Calculated 123 mg/dL (<100); Potassium 3.7 mmol/L (3.3-5.1); Sodium 141 mmol/L (135-145); Total Protein 7.3 g/dL (6.5-8.0); Triglycerides 247 mg/dL (<150)
[2023-03-23 11:33] LABS: TSH reflex Free T4 1.42 uIU/mL (0.32-4.0)
== END 2023-03-23 10:10 | disposition home or self-care (01) ==
LOC: HO.LAB 10:09
PROVIDERS: PCP Internal Medicine; Visit Provider Internal Medicine
DX: Z00.00 Encounter for general adult medical examination without abnormal findings (principal); E78.00 Pure hypercholesterolemia, unspecified; E55.9 Vitamin D deficiency, unspecified; R73.9 Hyperglycemia, unspecified; R30.0 Dysuria; I10 Essential (primary) hypertension
CPT/HCPCS: 36415; 80053; 80061; 81003; 82306; 83036; 84443; 85025

== ENCOUNTER 2023-10-11 14:57 | Outpatient (AMB) | payer OTHER, SELFPAY ==
--- NOTE | 2023-10-11 15:32 | A.OFFPC_ITS ---
Vital Signs 10/11/23 15:34 Height 6 ft 1 in Weight 337 lb 8 oz BMI 44.5 BP 118/88 Blood Pressure Location Lt brachial Position Sitting Pulse 74 Pulse Source Pulse Oximeter Pulse Oximetry (%) 90 L Oxygen Delivery Method Room Air Intake Visit Reasons: HTN, hyperlipidemia, anxiety Intake Note: Patient is here to follow up on HTN, Hyperlipidemia, Anxiety. Retail Experience Specialist Required: No Tare Worker: Not Required per policy Accompanied by: Self / Same As Patient Allergies cat dander Allergy (Unknown, Verified 10/11/23 16:10) Hives Medication List - Last Reconciled 10/11/23 by Humble Bullock MD aspirin 81 mg PO DAILY clonazepam 1 mg PO TID PRN 30 days methadone 48 mg PO DAILY metoprolol tartrate 100 mg PO BID 90 days omeprazole 20 mg PO DAILY 90 days Tobacco use date assessed: 10/11/23 Dental Screening Dental Screen Date: 10/11/23 Did you have a dental visit in the last 12 months?: Yes Did you have a dental problem in the last 6 months where you did not have access to dental care?: No Was dental information given to patient?: Patient has dentist HPI HTN, hyperlipidemia, anxiety HPI Details Patient comes in today for his follow up visit States that he currently feels okay He went to the ER at [facility] last month for abdominal pain Work ups done came out negative and his abdominal pain gradually improved with symptomatic treatment - states that he has not had any recurrence of his abdominal pain since He denies any headaches or dizziness; denies any fever Denies any chest pains, no SOB No nausea/vomiting and no change in bowel habits noted Would like to go over the results of his labs last done back in March 2023 [facility] Medical History Benign essential hypertension Morbid obesity with BMI of 40.0-44.9, adult Atherosclerotic cardiovascular disease Smoker History of substance abuse Coronary artery disease Pure hypercholesterolemia GERD (gastroesophageal reflux disease) Anxiety Surgical History History of tonsillectomy and adenoidectomy Family History Father Lung cancer Hypertension Smoker Mother Diabetes Hypothyroidism Social History Housing: Apartment Alcohol intake: former Patient Tobacco Use Status: Former Tobacco user e-Cigarette/Vaping Use: Never Used Second Hand Smoke Exposure: Yes Substance Use Type: Heroin service: No Current occupational status: employed Current occupational exposures/hazards: No Cognitive needs: No Hearing needs: No Vision needs: No Questionnaire PHQ-9 Over the last 2 weeks, how often have you been bothered by any of the following problems? 1. Little interest or pleasure in doing things: not at all 2. Feeling down, depressed, or hopeless: not at all 3. Trouble falling or staying asleep, or sleeping too much: not at all 4. Feeling tired or having little energy: not at all 5. Poor appetite or overeating: not at all 6. Feeling bad about yourself - or that you are a failure or have let yourself or your family down: not at all 7. Trouble concentrating on things, such as reading the newspaper or watching television: not at all 8. Moving or speaking so slowly that other people could have noticed. Or the opposite - being so fidgety or restless that you have been moving around a lot more than usual: not at all 9. Thoughts that you would be better off or of hurting yourself in some way: not at all Total score: 0 Depression Screening Interpretation: Negative Depression Screening Done: Yes 10989 - PHQ-9 Billing: Yes Source: Developed by Drs. Froylan Vernon, Alesha Mcclellan, Jose Dickerson and colleagues, with an educational radha from [employer]. Thrive Questionnaire Date Thrive assessed: 10/11/23 I am a: Patient What is your living situation today?: I have a steady place to live Within the past 12 months, did the food you bought not last and you didn't have the money to get more?: Never true Within the past 12 months, did you worry whether your food would run out before you got money to buy more?: Never true Do you have trouble paying for medicines?: No Do you have trouble getting transportation to medical appointments?: No Do you have trouble paying your heating and electricity bill?: No Do you have trouble taking care of your child, family member or friend?: No Do you have trouble with day-to-day activities such as bathing, preparing meals, shopping, managing finances, etc.?: No Are you currently unemployed and looking for a job?: No Are you interested in more education?: No Currently or been in a relationship where the following occur: no concerns reported THRIVE Score: 0 AUDIT C Alcohol Use Questionnaire (AUDIT-C) 1. How often do you have a drink containing alcohol?: Never 3. How often do you have six or more drinks on one occasion?: Never Total Score: 0 Score Reviewed/Action Taken: Yes BEN-7 AMB Questionnaire BEN-7 Date BEN - 7 assessed: 10/11/23 Feeling nervous, anxious, or on edge: 3 = Nearly every day (on medication) Not being able to stop or control worryin = Several days Worrying too much about different things: 1 = Several days Trouble relaxin = Several days Being so restless that it is hard to sit still: 1 = Several days Becoming easily annoyed or irritable: 1 = Several days Feeling afraid as if something awful might happen: 1 = Several days Total BEN-7 score (0-4 normal; 5-9 mild; 10-14 moderate; 15-21 severe): 9 Source: Developed by Drs. Froylan Vernon, Alesha Mcclellan, Jose Dickerson and colleagues, with an educational radha from [employer]. Review of Systems Const Denies chills, Denies fatigue, Denies fever(s) and Denies headache(s) ENT Denies dysphagia, Denies dizziness, Denies otalgia, Denies headache(s), Denies neck pain, Denies odynophagia and Denies sore throat Card Denies chest pain, Denies palpitations and Denies dyspnea Resp Denies cough and Denies dyspnea GI Denies abdominal pain, Denies constipation, Denies dysphagia, Denies heartburn, Denies diarrhea, Denies nausea, Denies odynophagia and Denies vomiting Denies dysuria, Denies nocturia and Denies urinary frequency Musc Denies back pain and Denies neck pain Skin/Breast Denies rash Neuro Denies dizziness and Denies headache(s) Psych Reports anxiety Endo Denies fatigue and Denies palpitations Physical exam (Primary Care) Vital Signs: Last Vital Signs Pulse 74 10/11/23 15:34 BP 118/88 10/11/23 15:34 Pulse Ox 90 L 10/11/23 15:34 Oxygen Delivery Method Room Air 10/11/23 15:34 BMI result Body Mass Index 44.5 Tobacco/Smoking Status: Tobacco use Status Tobacco use date assessed 10/11/23 10/11/23 15:41 Patient Tobacco Use Status Former Tobacco user 10/11/23 15:41 e-Cigarette/Vaping Use Never Used 10/11/23 15:41 PHQ-9: PHQ-9 Score PHQ-9: Total score 0 10/11/23 15:41 Depression Screening Interpretation: Negative Thrive Assessment: Date of Thrive Assessment Date Thrive assessed 10/11/23 10/11/23 15:41 Currently or been in a relationship where the following occur: no concerns reported Const General: no acute distress and alert HENMT Ears: TM's normal bilaterally and EAC's normal Throat: Yes posterior oropharynx normal and Yes tonsils normal (no TP congestion) Neck Neck: Yes no lymphadenopathy and Yes supple Thyroid: Thyroid normal Resp Auscultation: clear to auscultation bilaterally, no rales and no wheezes Cardio Rate: regular rate Rhythm: regular rhythm Heart sounds: no murmurs GI Palpation (GI): Soft to palpation and nontender Auscultation: normal bowel sounds General: Yes no CVA tenderness Back/Spine/Pelvis Back: no CVA tenderness Thoracic/Lumbar Spine: thoracic and lumbar spine normal to inspection Skin Rashes: no rashes Extrem General: Yes no clubbing, cyanosis or edema Results Reviewed Results Reviewed: Laboratory Tests 03/23/23 03/23/23 03/23/23 10:19 10:19 10:20 WBC 5.1 Hgb 14.4 Hct 42.5 Plt Count 190 D Sodium 141 Potassium 3.7 Creatinine 0.96 Estimated GFR > 60 Fasting Glucose 113 H Hemoglobin A1c % 5.2 Calcium 9.2 AST 40 H ALT 61 H Triglycerides 247 H Cholesterol 217 H LDL Cholesterol, Calc 123 H HDL Cholesterol 25-OH Vitamin D Total TSH 1.42 Ur Specific [place] 1.025 Urine Protein Negative Urine Glucose (UA) Negative Urine Blood Negative Urine Nitrite Negative Ur Leukocyte Esterase Negative 03/23/23 03/23/23 10:20 10:20 WBC Hgb Hct Plt Count Sodium Potassium Creatinine Estimated GFR Fasting Glucose Hemoglobin A1c % Calcium AST ALT Triglycerides Cholesterol LDL Cholesterol, Calc HDL Cholesterol 45 25-OH Vitamin D Total 30.0 TSH Ur Specific [place] Urine Protein Urine Glucose (UA) Urine Blood Urine Nitrite Ur Leukocyte Esterase Assessment and Plan Assessment & Plan (1) Coronary artery disease: Code(s): I25.10 - Atherosclerotic heart disease of [place] coronary artery without angina pectoris Qualifiers: Coronary Disease-Associated Artery/Lesion type: [place] artery [place] vs. transplanted heart: [place] heart Associated angina: without angina Qualified Code(s): I25.10 - Atherosclerotic heart disease of [place] coronary artery without angina pectoris Plan: Continue Metoprolol 100 mg BID and Aspirin 81 mg QD Most recent EKG done at [facility] in January 2022 revealed NSR with (+) T wave inversions in the anterolateral leads - these are similar to his previous EKG findings as far back as in 2013 Myocardial perfusion scan and echocardiogram done a couple of years ago came back normal Follow up with cardiology as scheduled (2) Benign essential hypertension: Code(s): I10 - Essential (primary) hypertension Plan: Reinforced low sodium diet - goal is systolic BP of 120 mm or less Continue Metoprolol tartrate 100 mg BID Patient is reminded to continue monitoring his BP regularly (3) Pure hypercholesterolemia: Code(s): E78.00 - Pure hypercholesterolemia, unspecified Plan: Results of his labs done back in March 2023 reviewed and discussed with patient - he is cautioned that his cholesterol levels have all increased slightly from previous back then Reinforced low cholesterol diet Patient used to take Atorvastatin but has not been on the Rx for over a year now Advised that if he cannot get his numbers to goal soon, we will have to consider starting him back on Atorvastatin Will have him recheck his labs and fasting lipids in 4 months for follow up (4) Elevated LFTs: Code(s): R79.89 - Other specified abnormal findings of blood chemistry Plan: Advised that his LFTs were elevated on his labs back in March 2023 and these are likely related to his weight and that losing weight will help get these corrected/resolved This is also part of the reason why I am holding off on starting him back on Atorvastatin at this time Will recheck his LFTs in 4 months for follow up (5) Impaired fasting glucose: Code(s): R73.01 - Impaired fasting glucose Plan: Advised that his FBS was elevated but his HgbA1c was normal at 5.2% Reinforced low calorie/low carb diet; exercise as tolerated Will continue to monitor this regularly for now (6) GERD (gastroesophageal reflux disease): Code(s): K21.9 - Gastro-esophageal reflux disease without esophagitis Qualifiers: Esophagitis presence: without esophagitis Qualified Code(s): K21.9 - Gastro-esophageal reflux disease without esophagitis Plan: Dietary restrictions reinforced Continue Omeprazole 20 mg QD (7) Constipation: Code(s): K59.00 - Constipation, unspecified Qualifiers: Constipation type: unspecified constipation type Qualified Code(s): K59.00 - Constipation, unspecified Plan: On and off - is most likely due to his being on Methadone Encouraged increased oral fluids and dietary fiber Advised that he can try taking some OTC stool softeners PRN and he can call for Rx if these do not help him (8) History of substance abuse: Comment: heroin, cocaine, opioids Code(s): F19.11 - Other psychoactive substance abuse, in remission Plan: Continue Methadone 48 mg QD - dose was dropped slightly from 55 mg previously Follow up with the [facility] ([facility]) as scheduled (9) Anxiety: Code(s): F41.9 - Anxiety disorder, unspecified Plan: Continue Clonazepam 1 mg TID PRN Patient is advised again to consider referral to psychiatry for further evaluation and management for his anxiety but he would like to continue holding off for now as he feels okay on his current Rx and is hoping that being able to get back to exercising regularly and losing some weight will help him a lot (10) Smoker: Code(s): F17.200 - Nicotine dependence, unspecified, uncomplicated Plan: Counseled again on smoking cessation (11) Morbid obesity with BMI of 40.0-44.9, adult: Code(s): E66.01 - Morbid (severe) obesity due to excess calories; Z68.41 - Body mass index [BMI] 40.0-44.9, adult Plan: Reinforced diet/exercise as tolerated/lose weight Plan Follow up in 4 months Orders: Orders Hemoglobin A1c 4 Months R73.01 - Impaired fasting glucose Vitamin D 25-OH Total 4 Months E55.9 - Vitamin D deficiency, unspecified UA CC w/rflx Micro + Cult 4 Months R30.0 - Dysuria Complete Blood Count Auto Diff 4 Months D64.9 - Anemia, unspecified Comprehensive [place]. Panel Fast 4 Months E78.00 - Pure hypercholesterolemia, unspecified Lipid Panel 4 Months E78.00 - Pure hypercholesterolemia, unspecified TSH reflex Free T4 4 Months E78.00 - Pure hypercholesterolemia, unspecified Coding Level of Care Code Est Pt Level 4 (01484) Diagnoses Coronary artery disease involving [place] coronary artery of [place] heart without angina pectoris I25.10 Coronary Disease-Associated Artery/Lesion type: [place] artery [place] vs. transplanted heart: [place] heart Associated angina: without angina Benign essential hypertension I10 Pure hypercholesterolemia E78.00 Elevated LFTs R79.89 Impaired fasting glucose R73.01 Gastroesophageal reflux disease without esophagitis K21.9 Esophagitis presence: without esophagitis Constipation, unspecified constipation type K59.00 Constipation type: unspecified constipation type History of substance abuse F19.11 Anxiety F41.9 Smoker F17.200 Morbid obesity with BMI of 40.0-44.9, adult E66.01; Z68.41
[2023-10-11 15:34] VITALS: BP 118/88; PULSE 74; O2SAT 90; BMI 44.5
== END 2023-10-11 16:19 | disposition home or self-care (01) ==
PROVIDERS: PCP Internal Medicine; Visit Provider Internal Medicine
DX: I25.10 Atherosclerotic heart disease of native coronary artery without angina pectoris (principal); F19.11 Other psychoactive substance abuse, in remission; Z68.41 Body mass index [BMI] 40.0-44.9, adult; E66.01 Morbid (severe) obesity due to excess calories; I10 Essential (primary) hypertension; E78.00 Pure hypercholesterolemia, unspecified; R79.89 Other specified abnormal findings of blood chemistry; R73.01 Impaired fasting glucose; K21.9 Gastro-esophageal reflux disease without esophagitis; K59.00 Constipation, unspecified; F41.9 Anxiety disorder, unspecified; F17.200 Nicotine dependence, unspecified, uncomplicated
CPT/HCPCS: 99214

== ENCOUNTER 2024-06-25 08:31 | Outpatient (AMB) | payer OTHER, SELFPAY ==
[2024-06-25 08:39] VITALS: BP 122/84; PULSE 80; O2SAT 91; BMI 43.9
--- NOTE | 2024-06-25 08:39 | A.OFFPC_ITS ---
Vital Signs 06/25/24 08:39 Height 6 ft 1 in Weight 333 lb 2 oz BMI 43.9 BP 122/84 Blood Pressure Location Lt brachial Position Sitting Pulse 80 Pulse Source Pulse Oximeter Pulse Oximetry (%) 91 L Oxygen Delivery Method Room Air Intake Visit Reasons: CAD, hyperlipidemia, elevated LFTs, anxiety [employer] Work[employer] Required: No Accompanied by: Self / Same As Patient Allergies cat dander Allergy (Unknown, Verified 06/25/24 09:14) Hives Medication List - Last Reconciled 06/25/24 by Humble Bullock MD aspirin 81 mg PO DAILY clonazepam 1 mg PO TID PRN 30 days methadone 48 mg PO DAILY metoprolol tartrate 100 mg PO BID 90 days omeprazole 20 mg PO DAILY 90 days Tobacco use date assessed: 06/25/24 Dental Screening Dental Screen Date: 06/25/24 Did you have a dental visit in the last 12 months?: Yes Did you have a dental problem in the last 6 months where you did not have access to dental care?: No Was dental information given to patient?: Patient has dentist HPI CAD, hyperlipidemia, elevated LFTs, anxiety HPI Details Patient comes in today for his follow up visit States that he currently feels okay but has been dealing with a lot of stress in helping take care of his father, who was recently diagnosed with colon cancer and they are trying to keep all of his appointments and hoping that he can get surgery done soon to remove his colon cancer lesion States that his father is now also experiencing symptoms of dementia He denies any headaches or dizziness Denies any chest pains, no SOB No nausea/vomiting, no abdominal pain No change in bowel habits noted Adds that he has noticed frequent blurring of his vision lately, especially at night, and is wondering if he maybe is starting to develop some cataracts REPLACED BY [facility] Medical History Benign essential hypertension Morbid obesity with BMI of 40.0-44.9, adult Atherosclerotic cardiovascular disease Smoker History of substance abuse Coronary artery disease Pure hypercholesterolemia GERD (gastroesophageal reflux disease) Anxiety Surgical History History of tonsillectomy and adenoidectomy Family History Father Lung cancer Hypertension Smoker Mother Diabetes Hypothyroidism Social History Housing: Apartment Alcohol intake: former Patient Tobacco Use Status: Former Tobacco user e-Cigarette/Vaping Use: Never Used Second Hand Smoke Exposure: Yes Substance Use Type: Heroin service: No Current occupational status: employed Current occupational exposures/hazards: No Cognitive needs: No Hearing needs: No Vision needs: No Questionnaire PHQ-9 Over the last 2 weeks, how often have you been bothered by any of the following problems? 1. Little interest or pleasure in doing things: not at all 2. Feeling down, depressed, or hopeless: not at all 3. Trouble falling or staying asleep, or sleeping too much: not at all 4. Feeling tired or having little energy: not at all 5. Poor appetite or overeating: not at all 6. Feeling bad about yourself - or that you are a failure or have let yourself or your family down: not at all 7. Trouble concentrating on things, such as reading the newspaper or watching television: not at all 8. Moving or speaking so slowly that other people could have noticed. Or the opposite - being so fidgety or restless that you have been moving around a lot more than usual: not at all 9. Thoughts that you would be better off or of hurting yourself in some way: not at all Total score: 0 Depression Screening Interpretation: Negative Depression Screening Done: Yes 94864 - PHQ-9 Billing: Yes Source: Developed by Drs. Froylan Vernon, Alesha Mcclellan, Jose Dickerson and colleagues, with an educational radha from [employer]. Thrive Questionnaire Date Thrive assessed: 06/25/24 I am a: Patient What is your living situation today?: I have a steady place to live Within the past 12 months, did the food you bought not last and you didn't have the money to get more?: Never true Within the past 12 months, did you worry whether your food would run out before you got money to buy more?: Never true Do you have trouble paying for medicines?: No Do you have trouble getting transportation to medical appointments?: No Do you have trouble paying your heating and electricity bill?: No Do you have trouble taking care of your child, family member or friend?: No Do you have trouble with day-to-day activities such as bathing, preparing meals, shopping, managing finances, etc.?: No Are you currently unemployed and looking for a job?: No Are you interested in more education?: No Please select the resources that you would like help with: None Currently or been in a relationship where the following occur: No concerns reported THRIVE Score: 0 AUDIT C Alcohol Use Questionnaire (AUDIT-C) 1. How often do you have a drink containing alcohol?: Never 3. How often do you have six or more drinks on one occasion?: Never Total Score: 0 Score Reviewed/Action Taken: Yes BEN-7 AMB Questionnaire BEN-7 Date BEN - 7 assessed: 06/25/24 Feeling nervous, anxious, or on edge: 3 = Nearly every day (on medication) Not being able to stop or control worryin = Several days Worrying too much about different things: 1 = Several days Trouble relaxin = Several days Being so restless that it is hard to sit still: 1 = Several days Becoming easily annoyed or irritable: 1 = Several days Feeling afraid as if something awful might happen: 1 = Several days Total BEN-7 score (0-4 normal; 5-9 mild; 10-14 moderate; 15-21 severe): 9 Source: Developed by Drs. Froylan Vernon, Alesha Mcclellan, Jose Dickerson and colleagues, with an educational radha from [employer]. Review of Systems Const Denies chills, Denies fatigue, Denies fever(s) and Denies headache(s) Eyes Reports blurry vision (especially at night) ENT Denies dysphagia, Denies dizziness, Denies otalgia, Denies headache(s), Denies neck pain, Denies odynophagia and Denies sore throat Card Denies chest pain, Denies palpitations and Denies dyspnea Resp Denies cough and Denies dyspnea GI Denies abdominal pain, Denies constipation, Denies dysphagia, Denies heartburn, Denies diarrhea, Denies nausea, Denies odynophagia and Denies vomiting Denies dysuria, Denies nocturia and Denies urinary frequency Musc Denies back pain and Denies neck pain Skin/Breast Denies rash Neuro Denies dizziness and Denies headache(s) Psych Reports anxiety Endo Denies fatigue and Denies palpitations Physical exam (Primary Care) Vital Signs: Last Vital Signs Pulse 80 06/25/24 08:39 BP 122/84 06/25/24 08:39 Pulse Ox 91 L 06/25/24 08:39 Oxygen Delivery Method Room Air 06/25/24 08:39 BMI result Body Mass Index 43.9 Tobacco/Smoking Status: Tobacco use Status Tobacco use date assessed 06/25/24 06/25/24 08:44 Patient Tobacco Use Status Former Tobacco user 06/25/24 08:44 e-Cigarette/Vaping Use Never Used 06/25/24 08:44 PHQ-9: PHQ-9 Score PHQ-9: Total score 0 06/25/24 08:44 Depression Screening Interpretation: Negative Thrive Assessment: Date of Thrive Assessment Date Thrive assessed 06/25/24 06/25/24 08:44 Currently or been in a relationship where the following occur: No concerns reported Const General: no acute distress and alert HENMT Ears: TM's normal bilaterally and EAC's normal Throat: Yes posterior oropharynx normal and Yes tonsils normal (no TP congestion) Neck Neck: Yes supple and No lymphadenopathy Thyroid: Thyroid normal Resp Auscultation: clear to auscultation bilaterally, no rales and no wheezes Cardio Rate: regular rate Rhythm: regular rhythm Heart sounds: no murmurs GI Palpation (GI): Soft to palpation and nontender Auscultation: normal bowel sounds General: Yes no CVA tenderness Back/Spine/Pelvis Back: no CVA tenderness Thoracic/Lumbar Spine: No lumbar spinal tenderness Skin Rashes: no rashes Extrem General: Yes no clubbing, cyanosis or edema Coding Level of Care Code Est Pt Level 4 (60388) Diagnoses Coronary artery disease involving [place] coronary artery of [place] heart without angina pectoris I25.10 Coronary Disease-Associated Artery/Lesion type: [place] artery [place] vs. transplanted heart: [place] heart Associated angina: without angina Pure hypercholesterolemia E78.00 Benign essential hypertension I10 Elevated LFTs R79.89 Impaired fasting glucose R73.01 Gastroesophageal reflux disease without esophagitis K21.9 Esophagitis presence: without esophagitis Constipation, unspecified constipation type K59.00 Constipation type: unspecified constipation type Blurry vision, bilateral H53.8 History of substance abuse F19.11 Anxiety F41.9 Smoker F17.200 Morbid obesity with BMI of 40.0-44.9, adult E66.01; Z68.41 Additional Codes PHQ-9 - 31074 - PHQ-9 Billing: Yes ([id number]) Assessment & Plan Assessment & Plan (1) Coronary artery disease: Code(s): I25.10 - Atherosclerotic heart disease of [place] coronary artery without angina pectoris Category: Medical Qualifiers: Coronary Disease-Associated Artery/Lesion type: [place] artery [place] vs. transplanted heart: [place] heart Associated angina: without angina Qualified Code(s): I25.10 - Atherosclerotic heart disease of [place] coronary artery without angina pectoris Plan: Continue Metoprolol 100 mg BID and Aspirin 81 mg QD His EKG done at [facility] in January 2022 revealed NSR with (+) T wave inversions in the anterolateral leads - these are similar to his previous EKG findings as far back as in 2013 Myocardial perfusion scan and echocardiogram done a couple of years ago came back normal Follow up with cardiology as scheduled (2) Pure hypercholesterolemia: Code(s): E78.00 - Pure hypercholesterolemia, unspecified Category: Medical Plan: Reinforced low cholesterol diet He has not had his follow up labs and cholesterol levels rechecked since March 2023 and he is advised that he should get these done OSVALDO - his previous orders have been updated and will just have him use these for his lab draw Patient used to take Atorvastatin but has not been on the Rx for over a year now He is advised that if he cannot get his numbers to goal soon, we will have to consider starting him back on Atorvastatin Will have him recheck his labs and fasting lipids in 4 months for follow up (3) Benign essential hypertension: Code(s): I10 - Essential (primary) hypertension Category: Medical Plan: Reinforced low sodium diet - goal is systolic BP of 120 mm or less Continue Metoprolol tartrate 100 mg BID Patient is reminded to continue monitoring his BP regularly (4) Elevated LFTs: Code(s): R79.89 - Other specified abnormal findings of blood chemistry Category: Medical Plan: He is advised that his LFTs were elevated on his labs back in March 2023 and these are likely related to his weight - is again advised that losing weight will help get these corrected/resolved This is also part of the reason why I am holding off on starting him back on Atorvastatin at this time Will recheck his LFTs in 4 months for follow up (5) Impaired fasting glucose: Code(s): R73.01 - Impaired fasting glucose Category: Medical Plan: Advised that his FBS was elevated but his HgbA1c was normal at 5.2% when they were last checked over a year ago Reinforced low calorie/low carb diet; exercise as tolerated Will continue to monitor these regularly for now (6) GERD (gastroesophageal reflux disease): Code(s): K21.9 - Gastro-esophageal reflux disease without esophagitis Category: Medical Qualifiers: Esophagitis presence: without esophagitis Qualified Code(s): K21.9 - Gastro-esophageal reflux disease without esophagitis Plan: Dietary restrictions reinforced Continue Omeprazole 20 mg QD (7) Constipation: Code(s): K59.00 - Constipation, unspecified Category: Medical Qualifiers: Constipation type: unspecified constipation type Qualified Code(s): K59.00 - Constipation, unspecified Plan: Patient is again advised that this is most likely due to his being on Methadone Encouraged again on increased oral fluids and dietary fiber He is advised that he can try taking some OTC stool softeners PRN and he can call for Rx if these do not help him (8) Blurry vision, bilateral: Code(s): H53.8 - Other visual disturbances Category: Medical Plan: Have advised patient that this may be due to presbyopia, considering his age, and does not necessarily mean that he has cataracts Have advised him that if it is due to presbyopia, this can be easily corrected with reading glasses, which he can get OTC without a prescription Will refer him to ophthalmology for further evaluation and management (9) History of substance abuse: Comment: heroin, cocaine, opioids Code(s): F19.11 - Other psychoactive substance abuse, in remission Category: Medical Plan: Continue Methadone 48 mg QD Follow up with [facility] ([facility]) as scheduled (10) Anxiety: Code(s): F41.9 - Anxiety disorder, unspecified Category: Medical Plan: Continue Clonazepam 1 mg TID PRN Patient is advised again to consider referral to psychiatry for further evaluation and management for his anxiety but he would like to continue holding off for now as he feels okay on his current Rx and is hoping that being able to get back to exercising regularly and losing some weight, which he states will help him a lot (11) Smoker: Code(s): F17.200 - Nicotine dependence, unspecified, uncomplicated Category: Social Hx Plan: He is counseled again on smoking cessation (12) Morbid obesity with BMI of 40.0-44.9, adult: Code(s): E66.01 - Morbid (severe) obesity due to excess calories; Z68.41 - Body mass index [BMI] 40.0-44.9, adult Category: Medical Plan: Reinforced diet/exercise as tolerated/lose weight Plan To return in 4 months for his annual physical examination Orders: Orders Complete Blood Count Auto Diff 09/30/24 D64.9 - Anemia, unspecified, Z00.00 - Encounter for general adult medical examination without abnormal findings Vitamin D 25-OH Total 09/30/24 E55.9 - Vitamin D deficiency, unspecified, Z00.00 - Encounter for general adult medical examination without abnormal findings Comprehensive [place]. Panel Fast 09/30/24 E78.00 - Pure hypercholesterolemia, unspecified, Z00.00 - Encounter for general adult medical examination without abnormal findings Lipid Panel 09/30/24 E78.00 - Pure hypercholesterolemia, unspecified, Z00.00 - Encounter for general adult medical examination without abnormal findings TSH reflex Free T4 09/30/24 E78.00 - Pure hypercholesterolemia, unspecified, Z00.00 - Encounter for general adult medical examination without abnormal findings UA CC w/rflx Micro + Cult 09/30/24 R30.0 - Dysuria, Z00.00 - Encounter for general adult medical examination without abnormal findings Prostate Specific Antigen Scr 09/30/24 Z00.00 - Encounter for general adult medical examination without abnormal findings Hemoglobin A1c 09/30/24 E11.9 - Type 2 diabetes mellitus without complications, Z00.00 - Encounter for general adult medical examination without abnormal findings Referrals Ophthalmology Referral H53.8 - Other visual disturbances
== END 2024-06-25 09:28 | disposition home or self-care (01) ==
PROVIDERS: PCP Internal Medicine; Visit Provider Internal Medicine
DX: I25.10 Atherosclerotic heart disease of native coronary artery without angina pectoris (principal); F19.11 Other psychoactive substance abuse, in remission; E66.01 Morbid (severe) obesity due to excess calories; Z68.41 Body mass index [BMI] 40.0-44.9, adult; E78.00 Pure hypercholesterolemia, unspecified; I10 Essential (primary) hypertension; R79.89 Other specified abnormal findings of blood chemistry; R73.01 Impaired fasting glucose; K21.9 Gastro-esophageal reflux disease without esophagitis; K59.00 Constipation, unspecified; H53.8 Other visual disturbances; F41.9 Anxiety disorder, unspecified

== ENCOUNTER → 2024-06-25 08:31 | Outpatient (BNVA) | payer OTHER, SELFPAY | PROVIDERS: PCP Internal Medicine; Visit Provider Internal Medicine | DX: I25.10 Atherosclerotic heart disease of native coronary artery without angina pectoris (principal); E78.5 Hyperlipidemia, unspecified; F41.9 Anxiety disorder, unspecified; R79.89 Other specified abnormal findings of blood chemistry; E78.00 Pure hypercholesterolemia, unspecified; I10 Essential (primary) hypertension; R73.01 Impaired fasting glucose; K21.9 Gastro-esophageal reflux disease without esophagitis; K59.00 Constipation, unspecified; H53.8 Other visual disturbances; F19.11 Other psychoactive substance abuse, in remission; F17.200 Nicotine dependence, unspecified, uncomplicated; E66.01 Morbid (severe) obesity due to excess calories; Z68.41 Body mass index [BMI] 40.0-44.9, adult; Z71.6 Tobacco abuse counseling | CPT/HCPCS: 96127; 99212 ==

== ENCOUNTER 2024-11-12 09:03 | Outpatient (REF) | payer OTHER, SELFPAY ==
[2024-11-12 10:34] LABS: MANUAL DIFF FLAG NO
[2024-11-12 10:55] LABS: Basophils Absolute Auto 0.1 X10*3/uL (0.0-0.2); Basophils Percent Auto 0.6 % (0-2); Eosinophils Absolute Auto 0.5 X10*3/uL (0.0-0.4); Eosinophils Percent Auto 5.7 % (0-4); Hematocrit 43.6 % (42.0-52.0); Imm Gran Abs Auto 0.03 X10*3/uL (0.00-0.03); Imm Gran Pct Auto 0.3 % (0.0-0.4); Lymphocytes Absolute Auto 3.7 X10*3/uL (1.2-4.9); Lymphocytes Percent Auto 41.1 % (20-40); Mean Corpuscular HGB Conc 34.4 g/dl (31.0-36.0); Mean Platelet Volume 9.2 fL (9.4-12.4); Monocytes Absolute Auto 0.6 X10*3/uL (0.1-1.2); Monocytes Percent Auto 6.7 % (2-11); Neutrophils Absolute Auto 4.1 x10*3/uL (2.0-8.3); Neutrophils Percent Auto 45.6 % (45-73); Platelet Count 223 X10*3/uL (160-400); Red Blood Count 4.54 X10*6/uL (4.60-5.80); Red Cell Distribution Width 12.9 % (11.0-16.0); White Blood Count 9.1 X10*3/uL (4.8-10.8)
[2024-11-12 11:02] LABS: Estimated Average Glucose 105 mg/dL; Hemoglobin A1C 136.1429 umol/L; Hemoglobin A1c % 5.3 % (<6.0); Total Hemoglobin (HGBA1C) 3921.0076 umol/L
[2024-11-12 12:13] LABS: TSH reflex Free T4 3.27 uIU/mL (0.32-4.0); Vitamin D 25-OH Total 14.8 ng/mL (>30)
[2024-11-12 12:31] LABS: Prostate Specific Antigen Scr < 0.10 ng/mL (<0.05-4.0)
[2024-11-12 12:34] LABS: Alanine Aminotransferase 28 U/L (0-40); Albumin Level 4.1 g/dL (3.5-5.0); Alkaline Phosphatase 84 U/L (39-117); Aspartate Amino Transferase 30 U/L (5-37); Bilirubin Total 0.4 mg/dL (0.0-1.0); Blood Urea Nitrogen 10 mg/dL (9-16); Calcium 8.9 mg/dL (8.4-10.2); Carbon Dioxide 29 mmol/L (22-29); Chloride 101 mmol/L (96-108); Cholesterol 224 mg/dL (<200); Estimated Glomerular Filt Rate > 60; Glucose Fasting 80 mg/dL (60-99); Potassium 4.1 mmol/L (3.3-5.1); Sodium 137 mmol/L (135-145); Total Protein 7.6 g/dL (6.5-8.0); Triglycerides 333 mg/dL (<150)
[2024-11-12 12:43] LABS: Appearance Urine Clear; Color Urine Dark Yellow; Glucose Urine UA Negative (Negative); Leukocyte Esterase Urine Small (1+) (Negative); Nitrite Urine Negative (Negative); UMIC TRIGGER UACC YES; Urine Blood Negative (Negative); Urine Ketones Trace mg/dL (Negative); Urine Protein 30 (1+) mg/dL (Neg-Trace)
[2024-11-12 12:47] LABS: Anion Gap 13 (12-20); HDL Cholesterol 39 mg/dL (>40); LDL Cholesterol Calculated 119 mg/dL (<100)
[2024-11-12 13:05] LABS: Bacteria Urine None Seen (None Seen); RBC Urine 0-2 /HPF (0-2); UACC Culture Trigger YES
== END 2024-11-12 09:04 | disposition home or self-care (01) ==
LOC: HO.LAB 09:03
PROVIDERS: PCP Internal Medicine; Visit Provider Internal Medicine
DX: Z00.00 Encounter for general adult medical examination without abnormal findings (principal); I25.10 Atherosclerotic heart disease of native coronary artery without angina pectoris; E78.00 Pure hypercholesterolemia, unspecified; I10 Essential (primary) hypertension; R79.89 Other specified abnormal findings of blood chemistry; R73.01 Impaired fasting glucose; K21.9 Gastro-esophageal reflux disease without esophagitis; K59.00 Constipation, unspecified; H53.8 Other visual disturbances; F19.11 Other psychoactive substance abuse, in remission; F11.20 Opioid dependence, uncomplicated; F41.9 Anxiety disorder, unspecified; E66.01 Morbid (severe) obesity due to excess calories; Z68.41 Body mass index [BMI] 40.0-44.9, adult; F17.200 Nicotine dependence, unspecified, uncomplicated; D64.9 Anemia, unspecified; E55.9 Vitamin D deficiency, unspecified
CPT/HCPCS: 36415; 80053; 80061; 81001; 81003; 82306; 83036; 84153; 84443; 85025; 87086; 96127; 99396

== ENCOUNTER 2024-11-12 09:03 | Outpatient (AMB) | payer OTHER, SELFPAY ==
[2024-11-12 09:17] VITALS: BP 116/78; PULSE 69; O2SAT 90; BMI 43.0
--- NOTE | 2024-11-12 09:17 | MHC.PC.OV ---
Vital Signs 11/12/24 09:17 Height 6 ft 1 in Weight 325 lb 9.964 oz BMI 43.0 BP 116/78 Blood Pressure Location Lt brachial Position Sitting Pulse 69 Pulse Source Pulse Oximeter Pulse Oximetry (%) 90 L Oxygen Delivery Method Room Air Intake Visit Reasons: pe Manager Administrative Required: No Accompanied by: Self / Same As Patient Allergies cat dander Allergy (Unknown, Verified 11/12/24 09:53) Hives Medication List - Last Reconciled 11/12/24 by Humble Bullock MD aspirin 81 mg PO DAILY clonazepam 1 mg PO TID PRN 30 days methadone 48 mg PO DAILY metoprolol tartrate 100 mg PO BID 90 days omeprazole 20 mg PO DAILY 90 days Tobacco use date assessed: 11/12/24 Dental Screening Dental Screen Date: 11/12/24 Did you have a dental visit in the last 12 months?: No Did you have a dental problem in the last 6 months where you did not have access to dental care?: No Was dental information given to patient?: No HPI pe HPI Details Patient comes in today for his annual physical examination States that he feels okay Has been experiencing some blurring of his vision for the past couple of years now and feels that this has slowly gottten worse lately to a point now where he has trouble reading fine prints He denies any eye pain He denies any headaches or dizziness Denies any chest pains, no SOB No nausea/vomiting, no abdominal pain States that he gets constipated at times - he is currently on Methadone Denies any acute urinary symptoms PFSH Medical History Benign essential hypertension Morbid obesity with BMI of 40.0-44.9, adult Atherosclerotic cardiovascular disease Smoker History of substance abuse Coronary artery disease Pure hypercholesterolemia GERD (gastroesophageal reflux disease) Anxiety Surgical History History of tonsillectomy and adenoidectomy Family History Father Lung cancer Hypertension Smoker Mother Diabetes Hypothyroidism Social History Housing: Apartment Alcohol intake: former Patient Tobacco Use Status: Former Tobacco user e-Cigarette/Vaping Use: Never Used Second Hand Smoke Exposure: Yes Substance Use Type: Heroin service: No Current occupational status: employed Current occupational exposures/hazards: No Cognitive needs: No Hearing needs: No Vision needs: No Questionnaire PHQ-9 Over the last 2 weeks, how often have you been bothered by any of the following problems? 1. Little interest or pleasure in doing things: not at all 2. Feeling down, depressed, or hopeless: not at all 3. Trouble falling or staying asleep, or sleeping too much: not at all 4. Feeling tired or having little energy: not at all 5. Poor appetite or overeating: not at all 6. Feeling bad about yourself - or that you are a failure or have let yourself or your family down: not at all 7. Trouble concentrating on things, such as reading the newspaper or watching television: not at all 8. Moving or speaking so slowly that other people could have noticed. Or the opposite - being so fidgety or restless that you have been moving around a lot more than usual: not at all 9. Thoughts that you would be better off or of hurting yourself in some way: not at all Total score: 0 Depression Screening Interpretation: Negative Depression Screening Done: Yes 70690 - PHQ-9 Billing: Yes Source: Developed by Drs. Froylan Vernon, Alesha Mcclellan, Jose Dickerson and colleagues, with an educational radha from [employer]. Thrive Questionnaire Date Thrive assessed: 11/12/24 I am a: Patient What is your living situation today?: I have a steady place to live Within the past 12 months, did the food you bought not last and you didn't have the money to get more?: Often true Within the past 12 months, did you worry whether your food would run out before you got money to buy more?: Never true Do you have trouble paying for medicines?: No Do you have trouble getting transportation to medical appointments?: No Do you have trouble paying your heating and electricity bill?: Yes Do you have trouble taking care of your child, family member or friend?: No Do you have trouble with day-to-day activities such as bathing, preparing meals, shopping, managing finances, etc.?: No Are you currently unemployed and looking for a job?: Yes Are you interested in more education?: No Please select the resources that you would like help with: Food and Utilities Currently or been in a relationship where the following occur: No concerns reported THRIVE Score: 2 AUDIT C Alcohol Use Questionnaire (AUDIT-C) 1. How often do you have a drink containing alcohol?: Never 3. How often do you have six or more drinks on one occasion?: Never Total Score: 0 Score Reviewed/Action Taken: Yes BEN-7 AMB Questionnaire BEN-7 Date BEN - 7 assessed: 11/12/24 Feeling nervous, anxious, or on edge: 3 = Nearly every day Not being able to stop or control worryin = Several days Worrying too much about different things: 3 = Nearly every day Trouble relaxin = Nearly every day Being so restless that it is hard to sit still: 1 = Several days Becoming easily annoyed or irritable: 0 = Not at all Feeling afraid as if something awful might happen: 0 = Not at all Total BEN-7 score (0-4 normal; 5-9 mild; 10-14 moderate; 15-21 severe): 11 Source: Developed by Drs. Froylan Vernon, Alesha Mcclellan, Jose Dickerson and colleagues, with an educational radha from [employer]. Review of Systems Const Denies chills, Denies fatigue, Denies fever(s), Denies headache(s), Denies malaise and Denies weakness Eyes Reports blurry vision (in both eyes - feels that this is getting worse), Denies change in vision, Denies irritation and Denies itchy eyes ENT Denies dysphagia, Denies dizziness, Denies otalgia, Denies headache(s), Denies nasal congestion, Denies neck pain, Denies odynophagia and Denies sore throat Card Denies rapid heart rate, Denies irregular heart rhythm, Denies palpitations and Denies dyspnea Resp Denies chest congestion, Denies cough, Denies dyspnea and Denies wheezing GI Denies abdominal pain, Denies bloating, Reports constipation (on and off - is on Methadone), Denies dysphagia, Denies heartburn, Denies diarrhea, Denies nausea, Denies odynophagia and Denies vomiting Denies hematuria, Denies difficulty urinating, Denies dysuria, Denies urinary frequency and Denies urinary urgency Musc Denies back pain, Denies arthralgias, Denies joint swelling, Denies muscle weakness and Denies neck pain Skin/Breast Denies change in pigmentation, Denies lesions, Denies rash and Denies unusual bruising Neuro Denies dizziness, Denies headache(s), Denies paresthesias and Denies weakness Endo Denies fatigue and Denies palpitations Aller/Immun Denies itchy eyes and Denies wheezing Physical exam (Primary Care) Vital Signs: Last Vital Signs Pulse 69 11/12/24 09:17 BP 116/78 11/12/24 09:17 Pulse Ox 90 L 11/12/24 09:17 Oxygen Delivery Method Room Air 11/12/24 09:17 BMI result Body Mass Index 43.0 Tobacco/Smoking Status: Tobacco use Status Tobacco use date assessed 11/12/24 11/12/24 09:24 Patient Tobacco Use Status Former Tobacco user 11/12/24 09:24 e-Cigarette/Vaping Use Never Used 11/12/24 09:24 PHQ-9: PHQ-9 Score PHQ-9: Total score 0 11/12/24 09:24 Depression Screening Interpretation: Negative Thrive Assessment: Date of Thrive Assessment Date Thrive assessed 11/12/24 11/12/24 09:24 Currently or been in a relationship where the following occur: No concerns reported Const General: no acute distress, alert and awake Orientation/consciousness: patient oriented x3 HENMT Head: Yes normocephalic and Yes atraumatic Ears: external ears normal, TM's normal bilaterally and EAC's normal General nose exam: No nasal discharge present Face and sinus: Yes normal facial exam and Yes sinuses nontender Teeth and gingiva: dentition normal Throat: Yes posterior oropharynx normal and Yes tonsils normal (no TP congestion) Eyes Eyelids: Yes eyelids normal Conjunctivae: conjunctivae normal Pupils: Equal, round and reactive pupils present EOM: EOMs intact bilaterally Neck Neck: Yes no lymphadenopathy and Yes supple Thyroid: Thyroid normal Resp Auscultation: clear to auscultation bilaterally, no rales and no wheezes Cardio Rate: regular rate Rhythm: regular rhythm Heart sounds: no murmurs GI Palpation (GI): Soft to palpation, nontender and No hepatosplenomegaly present Auscultation: normal bowel sounds General: Yes no CVA tenderness Back/Spine/Pelvis Back: no CVA tenderness Thoracic/Lumbar Spine: thoracic and lumbar spine normal to inspection Skin Lesions: no lesions Rashes: no rashes Neuro General: patient oriented x3, moves all extremities, no focal motor deficits and CN's II-XI intact bilaterally Cranial nerves: Yes Equal, round and reactive pupils present Cognition (Neuro): normal cognition Gait exam (Neuro): Normal gait present Extrem General: Yes no clubbing, cyanosis or edema Coding Level of Care Code Est Pt Prev Care 40-64y(29336) Diagnoses Annual physical exam Z00.00 Coronary artery disease involving [place] coronary artery of [place] heart without angina pectoris I25.10 Coronary Disease-Associated Artery/Lesion type: [place] artery [place] vs. transplanted heart: [place] heart Associated angina: without angina Pure hypercholesterolemia E78.00 Benign essential hypertension I10 Elevated LFTs R79.89 Impaired fasting glucose R73.01 Gastroesophageal reflux disease without esophagitis K21.9 Esophagitis presence: without esophagitis Constipation, unspecified constipation type K59.00 Constipation type: unspecified constipation type Blurry vision, bilateral H53.8 History of substance abuse F19.11 Anxiety F41.9 Smoker F17.200 Morbid obesity with BMI of 40.0-44.9, adult E66.01; Z68.41 Colon cancer screening Z12.11 Additional Codes PHQ-9 - 65992 - PHQ-9 Billing: Yes ([id number]) Assessment & Plan Assessment & Plan (1) Annual physical exam: Code(s): Z00.00 - Encounter for general adult medical examination without abnormal findings Category: Medical Plan: Check labs He is also now due to start colon cancer screening and will be referred for this (2) Coronary artery disease: Code(s): I25.10 - Atherosclerotic heart disease of [place] coronary artery without angina pectoris Category: Medical Qualifiers: Coronary Disease-Associated Artery/Lesion type: [place] artery [place] vs. transplanted heart: [place] heart Associated angina: without angina Qualified Code(s): I25.10 - Atherosclerotic heart disease of [place] coronary artery without angina pectoris Plan: Continue Metoprolol 100 mg BID and Aspirin 81 mg QD His EKG done at [facility] in January 2022 revealed NSR with (+) T wave inversions in the anterolateral leads - these are similar to his previous EKG findings as far back as in 2013 Myocardial perfusion scan and echocardiogram done a couple of years ago came back normal and patient is currently asymptomatic from a cardiac standpoint Follow up with cardiology as scheduled (3) Pure hypercholesterolemia: Code(s): E78.00 - Pure hypercholesterolemia, unspecified Category: Medical Plan: Reinforced low cholesterol diet He has not had his follow up labs and cholesterol levels rechecked since March 2023 and he is again advised that he should get these done OSVALDO - patient states that he has not yet eaten anything today and he is instructed to proceed to the lab as soon as he leaves the office today to get his labs done Patient used to take Atorvastatin but has not been on the Rx for over a year now He is advised that if he cannot get his numbers to goal soon, we will have to consider starting him back on Atorvastatin Will have him recheck his labs and fasting lipids again in 4 to 6 months for follow up (4) Benign essential hypertension: Code(s): I10 - Essential (primary) hypertension Category: Medical Plan: Reinforced low sodium diet - goal is systolic BP of 120 mm or less Continue Metoprolol tartrate 100 mg BID Patient is reminded to continue monitoring his BP regularly (5) Elevated LFTs: Code(s): R79.89 - Other specified abnormal findings of blood chemistry Category: Medical Plan: He is advised that his LFTs were elevated on his labs back in March 2023 and these are likely related to his weight - is again advised that losing weight will help get these corrected/resolved This is also part of the reason why I am holding off on starting him back on Atorvastatin at this time Will recheck his LFTs OSVALDO for follow up (6) Impaired fasting glucose: Code(s): R73.01 - Impaired fasting glucose Category: Medical Plan: Advised that his FBS was elevated but his HgbA1c was normal at 5.2% when they were last checked a couple of years ago Reinforced low calorie/low carb diet; exercise as tolerated Will continue to monitor these regularly for now (7) GERD (gastroesophageal reflux disease): Code(s): K21.9 - Gastro-esophageal reflux disease without esophagitis Category: Medical Qualifiers: Esophagitis presence: without esophagitis Qualified Code(s): K21.9 - Gastro-esophageal reflux disease without esophagitis Plan: Dietary restrictions reinforced Continue Omeprazole 20 mg QD (8) Constipation: Code(s): K59.00 - Constipation, unspecified Category: Medical Qualifiers: Constipation type: unspecified constipation type Qualified Code(s): K59.00 - Constipation, unspecified Plan: Patient is again advised that this is most likely due to his being on Methadone He is encouraged again on increased oral fluids and dietary fiber and is advised to try taking some OTC stool softeners PRN and he can call for Rx if these do not help him (9) Blurry vision, bilateral: Code(s): H53.8 - Other visual disturbances Category: Medical Plan: Have advised patient again that this may be due to presbyopia, considering his age, and does not necessarily mean that he has cataracts Will refer him again to ophthalmology for further evaluation and management - he was referred at his last visit but patient states that he never received any call back to schedule his appointment (10) History of substance abuse: Comment: heroin, cocaine, opioids Code(s): F19.11 - Other psychoactive substance abuse, in remission Category: Medical Plan: Continue Methadone 48 mg QD Follow up with [facility] ([facility]) as scheduled (11) Anxiety: Code(s): F41.9 - Anxiety disorder, unspecified Category: Medical Plan: Continue Clonazepam 1 mg TID PRN Patient is advised again to consider referral to psychiatry for further evaluation and management for his anxiety but he would like to continue holding off for now as he feels okay on his current Rx and is hoping that being able to get back to exercising regularly and losing some weight, which he states will help him a lot (12) Smoker: Code(s): F17.200 - Nicotine dependence, unspecified, uncomplicated Category: Social Hx Plan: He is counseled again on complete smoking cessation (13) Morbid obesity with BMI of 40.0-44.9, adult: Code(s): E66.01 - Morbid (severe) obesity due to excess calories; Z68.41 - Body mass index [BMI] 40.0-44.9, adult Category: Medical Plan: Reinforced diet/exercise as tolerated/lose weight (14) Colon cancer screening: Code(s): Z12.11 - Encounter for screening for malignant neoplasm of colon Category: Medical Plan: Will refer him to GI for screening colonoscopy Plan Follow up in 6 months Orders: Orders Comprehensive [place]. Panel Fast Today E78.00 - Pure hypercholesterolemia, unspecified, Z00.00 - Encounter for general adult medical examination without abnormal findings TSH reflex Free T4 Today E78.00 - Pure hypercholesterolemia, unspecified, Z00.00 - Encounter for general adult medical examination without abnormal findings UA CC w/rflx Micro + Cult Today R30.0 - Dysuria, Z00.00 - Encounter for general adult medical examination without abnormal findings Vitamin D 25-OH Total Today E55.9 - Vitamin D deficiency, unspecified, Z00.00 - Encounter for general adult medical examination without abnormal findings Prostate Specific Antigen Scr Today Z00.00 - Encounter for general adult medical examination without abnormal findings Complete Blood Count Auto Diff Today D64.9 - Anemia, unspecified, Z00.00 - Encounter for general adult medical examination without abnormal findings Lipid Panel Today E78.00 - Pure hypercholesterolemia, unspecified, Z00.00 - Encounter for general adult medical examination without abnormal findings Hemoglobin A1c Today R73.9 - Hyperglycemia, unspecified, Z00.00 - Encounter for general adult medical examination without abnormal findings Referrals Gastroenterology Referral Z12.11 - Encounter for screening for malignant neoplasm of colon Ophthalmology Referral H53.8 - Other visual disturbances
== END 2024-11-12 10:01 | disposition home or self-care (01) ==
LOC: HO.HMCH 09:03
PROVIDERS: PCP Internal Medicine; Visit Provider Internal Medicine
DX: Z00.00 Encounter for general adult medical examination without abnormal findings (principal); E66.01 Morbid (severe) obesity due to excess calories; Z68.41 Body mass index [BMI] 40.0-44.9, adult; F19.11 Other psychoactive substance abuse, in remission; I25.10 Atherosclerotic heart disease of native coronary artery without angina pectoris; E78.00 Pure hypercholesterolemia, unspecified; R79.89 Other specified abnormal findings of blood chemistry; I10 Essential (primary) hypertension; R73.01 Impaired fasting glucose; K21.9 Gastro-esophageal reflux disease without esophagitis; K59.00 Constipation, unspecified; H53.8 Other visual disturbances

== ENCOUNTER 2025-05-20 09:00 | Outpatient (AMB) | payer OTHER, SELFPAY ==
[2025-05-20 09:01] VITALS: BP 110/84; PULSE 62; O2SAT 92; BMI 40.7
--- NOTE | 2025-05-20 09:01 | A.OFFPC_ITS ---
Vital Signs 05/20/25 09:01 Height 6 ft 1 in Weight 308 lb 6 oz BMI 40.7 BP 110/84 Blood Pressure Location Lt brachial Position Sitting Pulse 62 Pulse Source Pulse Oximeter Pulse Oximetry (%) 92 Oxygen Delivery Method Room Air Intake Visit Reasons: HTN, GERD, anxiety Block Out Machine Operator Required: No Accompanied by: Self / Same As Patient Allergies cat dander Allergy (Unknown, Verified 05/20/25 09:15) Hives Medication List - Last Reconciled 05/20/25 by Humble Bullock MD aspirin 81 mg PO DAILY clonazepam 1 mg PO TID PRN 30 days methadone 48 mg PO DAILY metoprolol tartrate 100 mg PO BID 90 days omeprazole 20 mg PO DAILY 90 days Tobacco use date assessed: 05/20/25 Dental Screening Dental Screen Date: 05/20/25 Did you have a dental visit in the last 12 months?: No Did you have a dental problem in the last 6 months where you did not have access to dental care?: No Was dental information given to patient?: No HPI HTN, GERD, anxiety HPI Details Patient comes in today for his follow up visit States that he feels okay He denies any headaches or dizziness Denies any chest pains, no increased SOB No nausea/vomiting, no abdominal pain No change in bowel habits noted - states that he still gets constipated at times, as he remains on Methadone States that his anxiety is adequately controlled on his current Rx He would also like to know how he did on his labs done back in November 2024 [facility] Medical History (Updated 05/20/25 @ 09:33 by Humble Bullock MD) Vitamin D deficiency Benign essential hypertension Morbid obesity with BMI of 40.0-44.9, adult Atherosclerotic cardiovascular disease Smoker History of substance abuse Coronary artery disease Pure hypercholesterolemia GERD (gastroesophageal reflux disease) Anxiety Surgical History History of tonsillectomy and adenoidectomy Family History Father Lung cancer Hypertension Smoker Mother Diabetes Hypothyroidism Social History Housing: Apartment Alcohol intake: former Patient Tobacco Use Status: Former Tobacco user e-Cigarette/Vaping Use: Never Used Second Hand Smoke Exposure: Yes Substance Use Type: Heroin service: No Current occupational status: employed Current occupational exposures/hazards: No Cognitive needs: No Hearing needs: No Vision needs: No Questionnaire PHQ-9 Over the last 2 weeks, how often have you been bothered by any of the following problems? 1. Little interest or pleasure in doing things: not at all 2. Feeling down, depressed, or hopeless: not at all 3. Trouble falling or staying asleep, or sleeping too much: not at all 4. Feeling tired or having little energy: not at all 5. Poor appetite or overeating: not at all 6. Feeling bad about yourself - or that you are a failure or have let yourself or your family down: not at all 7. Trouble concentrating on things, such as reading the newspaper or watching television: not at all 8. Moving or speaking so slowly that other people could have noticed. Or the opposite - being so fidgety or restless that you have been moving around a lot more than usual: not at all 9. Thoughts that you would be better off or of hurting yourself in some way: not at all Total score: 0 Depression Screening Interpretation: Negative Depression Screening Done: Yes 18896 - PHQ-9 Billing: Yes Source: Developed by Drs. Froylan Vernon, Alesha Mcclellan, Jose Dickerson and colleagues, with an educational radha from [employer]. Thrive Questionnaire Date Thrive assessed: 05/20/25 I am a: Patient What is your living situation today?: I have a steady place to live Within the past 12 months, did the food you bought not last and you didn't have the money to get more?: Often true Within the past 12 months, did you worry whether your food would run out before you got money to buy more?: Never true Do you have trouble paying for medicines?: No Do you have trouble getting transportation to medical appointments?: No Do you have trouble paying your heating and electricity bill?: Yes Do you have trouble taking care of your child, family member or friend?: No Do you have trouble with day-to-day activities such as bathing, preparing meals, shopping, managing finances, etc.?: No Are you currently unemployed and looking for a job?: Yes Are you interested in more education?: No Please select the resources that you would like help with: None Currently or been in a relationship where the following occur: No concerns reported THRIVE Score: 2 AUDIT C Alcohol Use Questionnaire (AUDIT-C) 1. How often do you have a drink containing alcohol?: Never 3. How often do you have six or more drinks on one occasion?: Never Total Score: 0 Score Reviewed/Action Taken: Yes BEN-7 AMB Questionnaire BEN-7 Date BEN - 7 assessed: 05/20/25 Feeling nervous, anxious, or on edge: 3 = Nearly every day Not being able to stop or control worryin = Several days Worrying too much about different things: 3 = Nearly every day Trouble relaxin = Nearly every day Being so restless that it is hard to sit still: 1 = Several days Becoming easily annoyed or irritable: 0 = Not at all Feeling afraid as if something awful might happen: 0 = Not at all Total BEN-7 score (0-4 normal; 5-9 mild; 10-14 moderate; 15-21 severe): 11 Source: Developed by Drs. Froylan Vernon, Alesha Mcclellan, Jose Dickerson and colleagues, with an educational radha from [employer]. Review of Systems Const Denies chills, Denies fatigue, Denies fever(s) and Denies headache(s) ENT Denies dysphagia, Denies dizziness, Denies otalgia, Denies headache(s), Denies neck pain, Denies odynophagia and Denies sore throat Card Denies chest pain, Denies rapid heart rate, Denies irregular heart rhythm, Denies palpitations and Denies dyspnea Resp Denies chest congestion, Denies cough, Denies dyspnea and Denies wheezing GI Denies abdominal pain, Reports constipation (on and off - is on Methadone), Denies dysphagia, Denies heartburn, Denies diarrhea, Denies nausea, Denies odynophagia and Denies vomiting Denies difficulty urinating, Denies dysuria and Denies urinary frequency Musc Denies back pain, Denies arthralgias and Denies neck pain Skin/Breast Denies rash Neuro Denies dizziness and Denies headache(s) Endo Denies fatigue and Denies palpitations Aller/Immun Denies wheezing Physical exam (Primary Care) Vital Signs: Last Vital Signs Pulse 62 05/20/25 09:01 BP 110/84 05/20/25 09:01 Pulse Ox 92 05/20/25 09:01 Oxygen Delivery Method Room Air 05/20/25 09:01 BMI result Body Mass Index 40.7 Tobacco/Smoking Status: Tobacco use Status Tobacco use date assessed 05/20/25 05/20/25 09:08 Patient Tobacco Use Status Former Tobacco user 05/20/25 09:08 e-Cigarette/Vaping Use Never Used 05/20/25 09:08 PHQ-9: PHQ-9 Score PHQ-9: Total score 0 05/20/25 09:08 Depression Screening Interpretation: Negative Thrive Assessment: Date of Thrive Assessment Date Thrive assessed 05/20/25 05/20/25 09:08 Currently or been in a relationship where the following occur: No concerns reported Const General: no acute distress and alert HENMT Ears: TM's normal bilaterally and EAC's normal Throat: Yes posterior oropharynx normal and Yes tonsils normal (no TP congestion) Neck Neck: Yes no lymphadenopathy and Yes supple Thyroid: Thyroid normal Resp Auscultation: clear to auscultation bilaterally, no rales and no wheezes Cardio Rate: regular rate Rhythm: regular rhythm Heart sounds: no murmurs GI Palpation (GI): Soft to palpation and nontender Auscultation: normal bowel sounds General: Yes no CVA tenderness Back/Spine/Pelvis Back: no CVA tenderness Skin Rashes: no rashes Extrem General: Yes no clubbing, cyanosis or edema Results Reviewed Results Reviewed: Laboratory Tests 11/12/24 11/12/24 10:27 10:33 WBC 9.1 Hgb 15.0 Hct 43.6 Plt Count 223 Sodium 137 Potassium 4.1 Creatinine 0.97 Estimated GFR > 60 Fasting Glucose 80 Hemoglobin A1c % 5.3 Calcium 8.9 AST 30 ALT 28 Triglycerides 333 H Cholesterol 224 H LDL Cholesterol, Calc 119 H HDL Cholesterol 39 L PSA Screen < 0.10 25-OH Vitamin D Total 14.8 L TSH 3.27 Ur Specific [place] 1.020 Urine Protein 30 (1+) H Urine Glucose (UA) Negative Urine Blood Negative Urine Nitrite Negative Ur Leukocyte Esterase Small (1+) H Coding Level of Care Code Est Pt Level 4 (17392) Diagnoses Coronary artery disease involving [place] coronary artery of [place] heart without angina pectoris I25.10 Coronary Disease-Associated Artery/Lesion type: [place] artery [place] vs. transplanted heart: [place] heart Associated angina: without angina Pure hypercholesterolemia E78.00 Benign essential hypertension I10 Elevated LFTs R79.89 Impaired fasting glucose R73.01 Gastroesophageal reflux disease without esophagitis K21.9 Esophagitis presence: without esophagitis Constipation, unspecified constipation type K59.00 Constipation type: unspecified constipation type Vitamin D deficiency E55.9 History of substance abuse F19.11 Anxiety F41.9 Smoker F17.200 Morbid obesity with BMI of 40.0-44.9, adult E66.01; Z68.41 Additional Codes PHQ-9 - 57804 - PHQ-9 Billing: Yes ([id number]) Assessment & Plan Assessment & Plan (1) Coronary artery disease: Code(s): I25.10 - Atherosclerotic heart disease of [place] coronary artery without angina pectoris Category: Medical Qualifiers: Coronary Disease-Associated Artery/Lesion type: [place] artery [place] vs. transplanted heart: [place] heart Associated angina: without angina Qualified Code(s): I25.10 - Atherosclerotic heart disease of [place] coronary artery without angina pectoris Plan: Continue Metoprolol 100 mg BID and Aspirin 81 mg QD His EKG done at [facility] in January 2022 revealed NSR with (+) T wave inversions in the anterolateral leads - these are similar to his previous EKG findings as far back as in 2013 Myocardial perfusion scan and echocardiogram done a couple of years ago came back normal and patient is currently asymptomatic from a cardiac standpoint Follow up with cardiology as scheduled (2) Pure hypercholesterolemia: Code(s): E78.00 - Pure hypercholesterolemia, unspecified Category: Medical Plan: Results of his labs done back in November 2024 reviewed and discussed with patient - he is advised that his cholesterol levels are still at the high end of the normal range but his triglyceride level has gone up to around 333 mg/dl He has lost some weight since, so this would also theoretically have improved with his weight loss Reinforced low cholesterol diet Patient used to take Atorvastatin but has not been on the Rx for over a year now Will have him recheck his labs and fasting lipids again in 6 months for follow up (3) Benign essential hypertension: Code(s): I10 - Essential (primary) hypertension Category: Medical Plan: Reinforced low sodium diet - goal is systolic BP of 120 mm or less Continue Metoprolol tartrate 100 mg BID Patient is reminded to continue monitoring his BP regularly (4) Elevated LFTs: Code(s): R79.89 - Other specified abnormal findings of blood chemistry Category: Medical Plan: His LFTs were elevated on his labs back in March 2023 but they were normal on his labs done in November 2024 Advised patient again that these were likely related to his weight and that losing weight will help get these corrected/resolved Will continue to monitor his LFTs regularly (5) Impaired fasting glucose: Code(s): R73.01 - Impaired fasting glucose Category: Medical Plan: His FBS was normal at 80 mg/dl and his HgbA1c was also normal at 5.3% back in November 2024 Reinforced low calorie/low carb diet; exercise as tolerated Will continue to monitor these regularly (6) GERD (gastroesophageal reflux disease): Code(s): K21.9 - Gastro-esophageal reflux disease without esophagitis Category: Medical Qualifiers: Esophagitis presence: without esophagitis Qualified Code(s): K21.9 - Gastro-esophageal reflux disease without esophagitis Plan: Dietary restrictions reinforced Continue Omeprazole 20 mg QD (7) Constipation: Code(s): K59.00 - Constipation, unspecified Category: Medical Qualifiers: Constipation type: unspecified constipation type Qualified Code(s): K59.00 - Constipation, unspecified Plan: Patient is again advised that this is most likely due to his being on Methadone He is encouraged again on increased oral fluids and dietary fiber intake He is advised that he can try taking some OTC stool softeners PRN and call for Rx if these do not help him (8) Vitamin D deficiency: Code(s): E55.9 - Vitamin D deficiency, unspecified Category: Medical Plan: He is advised that his Vitamin D level was very low on his labs back in November 2024 Will start him on Vitamin D3 2000 units QD (9) History of substance abuse: Comment: heroin, cocaine, opioids Code(s): F19.11 - Other psychoactive substance abuse, in remission Category: Medical Plan: Continue Methadone 48 mg QD Follow up with the [facility] ([facility]) as scheduled (10) Anxiety: Code(s): F41.9 - Anxiety disorder, unspecified Category: Medical Plan: Continue Clonazepam 1 mg TID PRN Patient is advised again to consider referral to psychiatry for further evaluation and management for his anxiety but he would like to continue holding off for now as he feels okay on his current Rx and is hoping that being able to get back to exercising regularly and losing some weight, which he states will help him a lot (11) Smoker: Code(s): F17.200 - Nicotine dependence, unspecified, uncomplicated Category: Social Hx Plan: He is counseled again on complete smoking cessation (12) Morbid obesity with BMI of 40.0-44.9, adult: Code(s): E66.01 - Morbid (severe) obesity due to excess calories; Z68.41 - Body mass index [BMI] 40.0-44.9, adult Category: Medical Plan: Reinforced diet/exercise as tolerated/lose weight - he has been able to lose able to lose about 17 pounds since his last visit Plan To return in 6 months for his next annual physical examination He is reminded to try to get his labs done just before he returns for his next annual physical Orders: Orders Lipid Panel 6 Months E78.00 - Pure hypercholesterolemia, unspecified, Z00.00 - Encounter for general adult medical examination without abnormal findings TSH reflex Free T4 6 Months E78.00 - Pure hypercholesterolemia, unspecified, Z00.00 - Encounter for general adult medical examination without abnormal findings Vitamin D 25-OH Total 6 Months E55.9 - Vitamin D deficiency, unspecified, Z00.00 - Encounter for general adult medical examination without abnormal findings Prostate Specific Antigen Scr 6 Months Z00.00 - Encounter for general adult medical examination without abnormal findings Hemoglobin A1c 6 Months R73.01 - Impaired fasting glucose, Z00.00 - Encounter for general adult medical examination without abnormal findings Complete Blood Count Auto Diff 6 Months D64.9 - Anemia, unspecified, Z00.00 - Encounter for general adult medical examination without abnormal findings Comprehensive [place]. Panel Fast 6 Months E78.00 - Pure hypercholesterolemia, unspecified, Z00.00 - Encounter for general adult medical examination without abnormal findings UA CC w/rflx Micro + Cult 6 Months R30.0 - Dysuria, Z00.00 - Encounter for general adult medical examination without abnormal findings Medications: New cholecalciferol (vitamin D3) 50 mcg PO DAILY 90 caps 3RF 90 days E55.9 - Vitamin D deficiency, unspecified
== END 2025-05-20 09:24 | disposition home or self-care (01) ==
LOC: HO.HMCH 09:01
PROVIDERS: PCP Internal Medicine; Visit Provider Internal Medicine
DX: I25.10 Atherosclerotic heart disease of native coronary artery without angina pectoris (principal); E78.00 Pure hypercholesterolemia, unspecified; I10 Essential (primary) hypertension; R79.89 Other specified abnormal findings of blood chemistry; R73.01 Impaired fasting glucose; K21.9 Gastro-esophageal reflux disease without esophagitis; K59.00 Constipation, unspecified; E55.9 Vitamin D deficiency, unspecified; F19.11 Other psychoactive substance abuse, in remission; F41.9 Anxiety disorder, unspecified; E66.01 Morbid (severe) obesity due to excess calories; Z68.41 Body mass index [BMI] 40.0-44.9, adult; F17.200 Nicotine dependence, unspecified, uncomplicated

== ENCOUNTER → 2025-05-20 09:00 | Outpatient (BNVA) | payer OTHER, SELFPAY | PROVIDERS: PCP Internal Medicine; Visit Provider Internal Medicine | DX: I25.10 Atherosclerotic heart disease of native coronary artery without angina pectoris (principal); E78.00 Pure hypercholesterolemia, unspecified; I10 Essential (primary) hypertension; R79.89 Other specified abnormal findings of blood chemistry; R73.01 Impaired fasting glucose; K21.9 Gastro-esophageal reflux disease without esophagitis; K59.00 Constipation, unspecified; E55.9 Vitamin D deficiency, unspecified; F19.11 Other psychoactive substance abuse, in remission; F41.9 Anxiety disorder, unspecified; E66.01 Morbid (severe) obesity due to excess calories; Z87.891 Personal history of nicotine dependence; Z68.41 Body mass index [BMI] 40.0-44.9, adult | CPT/HCPCS: 96127; 99212 ==